=== PATIENT | female | born 1995 | race Caucasian/White ===

== ENCOUNTER 2019-02-26 02:28 | Emergency (ER) | payer SELFPAY ==
[~2019-02-26] VITALS: Ht 162.6 cm; Wt 122.5 kg
--- OUTSIDE RECORDS SUMMARY | 2019-02-26 02:33 | XMS REPORT ---
Author Author DEBRA VELASCO [facility] Address [address] [place] [address] Care Team Providers Care Communications Engineering Technician Name Role Phone DEBRA VELASCO Unavailable PROBLEMS Type Condition ICD9-CM Code [id number] Code Onset Dates Condition Status SNOMED Code Problem Gingivitis K05.10 Active 28148090 Problem Moderate episode of recurrent major depressive disorder F33.1 Active 802624701 Problem Abnormal smell R43.1 Active 1601009927935 Problem Anxiety F41.9 Active 39600751 ALLERGIES Substance Reaction Event Type Date Status Nystatin Unknown Drug Allergy Aug, Active Decongestant Unknown Drug Allergy Aug, Active Cough Formula D Unknown Drug Allergy Aug, Active Pain med sensitivity Unknown Non Drug Allergy Aug, Active Muscle relaxers Unknown Non Drug Allergy Aug, Active ENCOUNTERS Encounter Location Date Diagnosis [place] [address] [address] Sep, [place] [address] [address] [place] [id number] [place] [phone] Aug, Dental examination Z01.20 [place] [address] [address] Aug, Gingivitis K05.10 ; Moderate episode of recurrent major depressive disorder F33.1 ; Abnormal smell R43.1 and BMI 40.0-44.9, adult Z68.41 [place] [address] [address] 08 May, 2017 [place] [address] [address] 10 Apr, 2017 Anxiety F41.9 ; Establishing care with new doctor, encounter for Z76.89 ; Mild single current episode of major depressive disorder F32.0 and Screening cholesterol level Z13.220 [facility] [address] [facility] [id number] [place] [address] Mar, Anxiety F41.9 IMMUNIZATIONS No Known Immunizations SOCIAL HISTORY Never Assessed REASON FOR VISIT Establish Care Kiesha ARBOLEDA, Lost sense of smell, taste and tremor in left index fi nger and anxiety Kiesha ARBOLEDA PLAN OF CARE Activity Details Follow Up 6-8wk Reason:depression VITAL SIGNS Height 64 in 2018-09-10 Weight 241.7 lbs 2018-09-10 Temperature 98.6 degrees Fahrenheit 2018-09-10 Heart Rate 94 bpm 2018-09-10 Respiratory Rate 18 2018-09-10 BMI 41.48 kg/m2 2018-09-10 Blood pressure systolic 132 mmHg 2018-09-10 Blood pressure diastolic 88 mmHg 2018-09-10 MEDICATIONS Medication Instructions Dosage Frequency Start Date End Date Duration Status Prozac 20 mg 1 capsule daily for 2 wk then increase to 2 capsules daily Aug, 90 days Active Amoxicillin 500 mg Orally every 8 hrs 1 capsule 8h Aug, 7 days Active Chlorhexidine Gluconate 0.12 % Mouth/Throat 2 times a day 15 mL swish and spit 12h Aug, 10 days Active RESULTS No Results PROCEDURES No Known procedures INSTRUCTIONS MEDICATIONS ADMINISTERED No Known Medications MEDICAL (GENERAL) HISTORY Type Description Date Medical History generalized anxiety Medical History PMDD Medical History somatic anxiety Medical History HPV Medical History Gluten intolerance Surgical History cholecystectomy 2006 Hospitalization History [facility] for anxiety attack 06/2018
--- OUTSIDE RECORDS SUMMARY | 2019-02-26 02:33 | XMS REPORT ---
Author Author DENISE MAKI Organization [facility] Address [address] [place] [address] Care Team Providers Care Recreation Director Name Role Phone DENISE MAKI Unavailable PROBLEMS Type Condition ICD9-CM Code [id number] Code Onset Dates Condition Status SNOMED Code Problem Mild single current episode of major depressive disorder F32.0 Active 42517633 Problem Anxiety F41.9 Active 36846309 ALLERGIES Substance Reaction Event Type Date Status Nystatin Unknown Drug Allergy Mar, Active Decongestant Unknown Drug Allergy Mar, Active Cough Formula D Unknown Drug Allergy Mar, Active Muscle relaxers Unknown Non Drug Allergy Mar, Active Pain med sensitivity Unknown Non Drug Allergy Mar, Active ENCOUNTERS Encounter Location Date Diagnosis [facility] [id number] [place] [phone] May, [facility] [address] [place] [id number] [place] [phone] Apr, Anxiety F41.9 ; Establishing care with new doctor, encounter for Z76.89 ; Mild single current episode of major depressive disorder F32.0 and Screening cholesterol level Z13.220 [facility] [address] [place] [id number] [place] [phone] Mar, Anxiety F41.9 IMMUNIZATIONS No Known Immunizations SOCIAL HISTORY Never Assessed REASON FOR VISIT Sat started hainvg weird head pain on left side, vertigo couldnt stand up- went to ER but left due to long wait. Next day felt like air is thick, chest started to hurt, dizziness, right arm went numb. Happened once every day since. J[address]ras[address] rRN PLAN OF CARE Activity Details Follow Up prn Reason: VITAL SIGNS Height 64 in 2017-04-07 Weight 242.0 lbs 2017-04-07 Temperature 98.3 degrees Fahrenheit 2017-04-07 Heart Rate 76 bpm 2017-04-07 Respiratory Rate 20 2017-04-07 BMI 41.53 kg/m2 2017-04-07 Blood pressure systolic 110 mmHg 2017-04-07 Blood pressure diastolic 76 mmHg 2017-04-07 MEDICATIONS Unknown Medications RESULTS No Results PROCEDURES No Known procedures INSTRUCTIONS MEDICATIONS ADMINISTERED No Known Medications MEDICAL (GENERAL) HISTORY Type Description Date Medical History generalized anxiety Medical History PMDD Medical History somatic anxiety Medical History HPV Medical History Gluten intolerance Surgical History cholecystectomy 2006
--- OUTSIDE RECORDS SUMMARY | 2019-02-26 02:33 | XMS REPORT ---
Author Author SYLVIA Spann Organization [facility] Address [address] [place] [address] Care Team Providers Care Glass Cutter Name Role Phone SYLVIA Spann Unavailable PROBLEMS Type Condition ICD9-CM Code [id number] Code Onset Dates Condition Status SNOMED Code Problem Mild single current episode of major depressive disorder F32.0 Active 85830544 Problem Anxiety F41.9 Active [id number] ALLERGIES No Information ENCOUNTERS Encounter Location Date Diagnosis [facility] [id number] [place] [phone] 08 May, 2017 [facility] [address] [place] [id number] [place] [phone] 10 Apr, 2017 Anxiety F41.9 ; Establishing care with new doctor, encounter for Z76.89 ; Mild single current episode of major depressive disorder F32.0 and Screening cholesterol level Z13.220 [facility] [id number] [place] [phone] 15 Mar, 2017 Anxiety F41.9 IMMUNIZATIONS No Known Immunizations SOCIAL HISTORY Never Assessed REASON FOR VISIT Refill request PLAN OF CARE VITAL SIGNS MEDICATIONS Unknown Medications RESULTS No Results PROCEDURES No Known procedures INSTRUCTIONS MEDICATIONS ADMINISTERED No Known Medications MEDICAL (GENERAL) HISTORY Type Description Date Medical History generalized anxiety Medical History PMDD Medical History somatic anxiety Medical History HPV Medical History Gluten intolerance Surgical History cholecystectomy 2006
[2019-02-26 02:51] LABS: BILIRUBIN,URINE NEGATIVE (NEGATIVE); CLARITY,URINE CLEAR; COLOR,URINE YELLOW; GLUCOSE, URINE (UA) NEGATIVE (NEGATIVE); KETONES,URINE NEGATIVE (NEGATIVE); NITRITE,URINE NEGATIVE (NEGATIVE); PROTEIN,URINE NEGATIVE (NEGATIVE)
[2019-02-26 02:52] LABS: BACTERIA,URINE QNS /HPF; LEUKOCYTE ESTERASE ,URINE TRACE (NEGATIVE); RBC,URINE QNS /HPF; UROBILINOGEN,URINE 0.2 MG/DL (NORMAL); WBC,URINE QNS /HPF
--- NOTE | 2019-02-26 03:05 | ED GI ---
General Chief Complaint: Abdominal/GI Problems Stated Complaint: ABD PAIN;VOMITING Nursing Triage Note: pt states n/v with lower mid back pain started yesterday morning. pt unable to keep even water down Sepsis Screen: No Definite Risk Source of Information: Patient, RN Notes Reviewed Exam Limitations: No Limitations History of Present Illness Date Seen by Provider: Feb 26, 2019 Time Seen by Provider: 03:00 Initial Comments Patient presents c/ c/o worsening abdominal pain c/ N/V since yesterday. A little diarrhea. (+) LBP as well. No known fever. Never had before. States can't keep anything down. Timing/Duration: 1 Day Severity/Quality: Moderate Location: Periumbilical Radiation: Back Activities at Onset: None Modifying Factors: Improves With Other (none) Associated Symptoms: Denies Symptoms (x/ as noted. ), Back Pain, Nausea/Vomiting Allergies and Home Medications Allergies Coded Allergies: latex (Verified Allergy, Unknown, 02/26/19) nystatin (Verified Allergy, Unknown, 02/26/19) Uncoded Allergies: MUSCLE RELAXANTS (Allergy, Unknown, 02/26/19) PAIN MEDICATION (Allergy, Unknown, 02/26/19) Home Medications Cefuroxime Axetil 250 Mg Tablet, 250 MG PO BID Prescribed by: OTF WIN on 02/26/19444 Ondansetron 4 Mg Tab.rapdis, 4 MG PO Q6H PRN for NAUSEA/VOMITING Prescribed by: OTF WIN on 02/26/19 0445 Patient Home Medication List Home Medication List Reviewed: Yes Review of Systems Review of Systems Constitutional: see HPI Gastrointestinal: See HPI, Abdominal Pain, Diarrhea (a little), Nausea, Vomiti ng All Other Systems Reviewed Negative Unless Noted: Yes (Negative excepted noted.) Past Pvchsqv-Lbwlct-Itszlt Hx Patient Social History Alcohol Use: Denies Use Recreational Drug Use: No Smoking Status: Current Everyday Smoker Type Used: Cigars 2nd Hand Smoke Exposure: No Recent Foreign Travel: No Contact w/Someone Who Travel: No Recent Infectious Disease Expo: No Recent Hopitalizations: No Physical Abuse: No Sexual Abuse: No Mistreated: No Fear: No Seasonal Allergies Seasonal Allergies: No Past Medical History Surgeries: Yes Gallbladder Respiratory: No Cardiac: No Neurological: No Genitourinary: No Gastrointestinal: No Musculoskeletal: No Endocrine: No HEENT: No Cancer: No Psychosocial: No Integumentary: No Blood Disorders: No Physical Exam Vital Signs Vital Signs - First Documented 02/26/19 02:43 Temp 97.4 Pulse 95 Resp 16 B/P (MAP) 153/88 (109) Pulse Ox 98 O2 Delivery Room Air Capillary Refill : Less Than 3 Seconds Height/Weight/BMI Height: 5'4.00" Weight: 270lbs. oz. 122.228998rc; BMI Method:Stated General Appearance: WD/WN, moderate distress, obese Respiratory: no respiratory distress Cardiovascular: regular rate, rhythm Gastrointestinal: soft; No distended, No guarding, No rebound; tenderness (generalized mid abdomen) Rectal: deferred Neurologic/Psychiatric: no motor/sensory deficits, alert, oriented x 3, depressed affect Skin: warm/dry (hygiene is fair @ best) Progress/Results/Core Measures Results/Orders Lab Results Laboratory Tests Test 02/26/19 02:40 02/26/19 03:18 Range/Units Urine Color YELLOW Urine Clarity CLEAR Urine pH 6.0 5-9 Urine Specific [place] 1.025 H 1.016-1.022 Urine Protein NEGATIVE NEGATIVE Urine Glucose (UA) NEGATIVE NEGATIVE Urine Ketones NEGATIVE NEGATIVE Urine Nitrite NEGATIVE NEGATIVE Urine Bilirubin NEGATIVE NEGATIVE Urine Urobilinogen 0.2 NORMAL MG/DL Urine Leukocyte Esterase TRACE NEGATIVE Urine RBC (Auto) TRACE H NEGATIVE Urine RBC /HPF Urine WBC /HPF Urine Crystals /LPF Urine Bacteria /HPF Urine Casts /LPF Urine Mucus /LPF Urine Culture Indicated NO White Blood Count 8.1 4.3-11.0 10^3/uL Red Blood Count 4.35 4.35-5.85 10^6/uL Hemoglobin 12.8 11.5-16.0 G/DL Hematocrit 37 35-52 % Mean Corpuscular Volume 86 80-99 FL Mean Corpuscular Hemoglobin 29 25-34 PG Mean Corpuscular Hemoglobin Concent 34 32-36 G/DL Red Cell Distribution Width 12.9 10.0-14.5 % Platelet Count 315 130-400 10^3/uL Mean Platelet Volume 10.2 7.4-10.4 FL Neutrophils (%) (Auto) 71 42-75 % Lymphocytes (%) (Auto) 23 12-44 % Monocytes (%) (Auto) 4 0-12 % Eosinophils (%) (Auto) 2 0-10 % Basophils (%) (Auto) 0 0-10 % Neutrophils # (Auto) 5.7 1.8-7.8 X 10^3 Lymphocytes # (Auto) 1.9 1.0-4.0 X 10^3 Monocytes # (Auto) 0.3 0.0-1.0 X 10^3 Eosinophils # (Auto) 0.2 0.0-0.3 10^3/uL Basophils # (Auto) 0.0 0.0-0.1 10^3/uL Sodium Level 139 135-145 MMOL/L Potassium Level 4.1 3.6-5.0 MMOL/L Chloride Level 102 98-107 MMOL/L Carbon Dioxide Level 15 L 21-32 MMOL/L Anion Gap 22 H 5-14 MMOL/L Blood Urea Nitrogen 13 7-18 MG/DL Creatinine 0.60 0.60-1.30 MG/DL Estimat Glomerular Filtration Rate > 60 BUN/Creatinine Ratio 22 Glucose Level 115 H 70-105 MG/DL Calcium Level 9.1 8.5-10.1 MG/DL Corrected Calcium 9.1 8.5-10.1 MG/DL Total Bilirubin 0.4 0.1-1.0 MG/DL Aspartate Amino Transf (AST/SGOT) 11 5-34 U/L Alanine Aminotransferase (ALT/SGPT) 14 0-55 U/L Alkaline Phosphatase 51 40-136 U/L Total Protein 7.3 6.4-8.2 GM/DL Albumin 4.0 3.2-4.5 GM/DL Lipase 23 8-78 U/L Serum Test, Qualitative NEGATIVE NEGATIVE My Orders Orders - OTF WIN DO Ua Culture If Indicated (02/26/19 02:36) Ed Iv/Invasive Line Start (02/26/19 03:05) Cbc With Automated Diff (02/26/19 03:05) Comprehensive Metabolic Panel (02/26/19 03:05) Hcg,Qualitative Serum (02/26/19 03:05) Lipase (02/26/19 03:05) Lactated Ringers (Lr 1000 Ml Iv Solution (02/26/19 03:15) Ketorolac Injection (Toradol Injection) (02/26/19 03:15) Ct Abdomen/Pelvis W (02/26/19 03:52) Iohexol Injection (Omnipaque 350 Mg/Ml 1 (02/26/19 04:00) Received Contrast (Hold Metformin- Contr (02/26/19 04:00) Ns (Ivpb) (Sodium Chloride 0.9% Ivpb Bag (02/26/19 04:00) Ceftriaxone For Iv Use (Rocephin For I (02/26/19 04:45) Ondansetron Injection (Zofran Injectio (02/26/19 04:45) Medications Given in ED Vital Signs/I&O 02/26/19 02/26/19 02:43 04:59 Temp 97.4 Pulse 95 77 Resp 16 18 B/P (MAP) 153/88 (109) 160/105 (123) Pulse Ox 98 98 O2 Delivery Room Air Room Air Blood Pressure Mean: 109 Progress Progress Note : Progress Note Symptoms improved c/ fluids and meds Diagnostic Imaging Diagonstic Imaging: CT Plain Films/CT/US/NM/MRI: abdomen (See reported; suspected bladder infection) Departure Impression Primary Impression: Abdominal pain Additional Impressions: Nausea and vomiting Urinary tract infection Disposition: HOME, SELF-CARE Condition: Improved Departure-Patient Inst. Decision time for Depature: 04:42 Referrals: [facility] Patient Instructions: Nausea and Vomiting of (DC), Urinary Tract Infection, Adult (DC) Add. Discharge Instructions: All discharge instructions reviewed with patient and/or family. Voiced understanding. RECOMMEND 1000 mg OF TYLENOL EVERY 6 HOURS NEEDED FOR PAIN. DO NOT EXCEED 4000 mg OF TYLENOL IN A 24 HOUR PERIOD. Scripts Cefuroxime Axetil (Cefuroxime) 250 Mg Tablet 250 MG PO BID for UTI for 10 Days, #20 TAB 0 Refills Prov: OTF WIN DO 02/26/19 Ondansetron (Ondansetron Odt) 4 Mg Tab.rapdis 4 MG PO Q6H PRN for NAUSEA/VOMITING, #10 TAB 0 Refills Prov: OTF WIN DO 02/26/19 OTF WIN DO Feb 26, 2019 03:05
[2019-02-26] MEDS ORDERED: LACTATED RINGERS 1,000 ML IV SCH (03:15)
[2019-02-26] MEDS ORDERED: KETOROLAC 30 MG/ML VIAL IVP ONE (03:15)
[2019-02-26 03:27] LABS: HEMATOCRIT 37 % (35-52); HEMOGLOBIN 12.8 G/DL (11.5-16.0); MEAN CORPUSCULAR HEMOGLOBIN 29 PG (25-34); MEAN CORPUSCULAR HGB CONC 34 G/DL (32-36); MEAN CORPUSCULAR VOLUME 86 FL (80-99); PLATELET COUNT 315 10^3/uL (130-400); RED CELL DISTRIBUTION WIDTH 12.9 % (10.0-14.5); WHITE BLOOD COUNT 8.1 10^3/uL (4.3-11.0)
[2019-02-26 03:28] LABS: BASOPHILS % (AUTO) 0 % (0-10); EOSINOPHILS # (AUTO) 0.2 10^3/uL (0.0-0.3); EOSINOPHILS % (AUTO) 2 % (0-10); LYMPHOCYTES # (AUTO) 1.9 X 10^3 (1.0-4.0); LYMPHOCYTES % (AUTO) 23 % (12-44); MEAN PLATELET VOLUME 10.2 FL (7.4-10.4); MONOCYTES # (AUTO) 0.3 X 10^3 (0.0-1.0); MONOCYTES % (AUTO) 4 % (0-12); NEUTROPHILS # (AUTO) 5.7 X 10^3 (1.8-7.8); NEUTROPHILS % (AUTO) 71 % (42-75)
[2019-02-26 03:43] LABS: CARBON DIOXIDE 15 MMOL/L (21-32); CHLORIDE 102 MMOL/L (98-107); POTASSIUM 4.1 MMOL/L (3.6-5.0); SODIUM 139 MMOL/L (135-145)
[2019-02-26 03:44] LABS: ALANINE AMINOTRANSFERASE 14 U/L (0-55); ALKALINE PHOSPHATASE 51 U/L (40-136); BILIRUBIN,TOTAL 0.4 MG/DL (0.1-1.0); BUN/CREATININE RATIO 22; CALCIUM 9.1 MG/DL (8.5-10.1); GFR ESTIMATED > 60; GLUCOSE 115 MG/DL (70-105); LIPASE 23 U/L (8-78); TOTAL PROTEIN 7.3 GM/DL (6.4-8.2)
[2019-02-26] MEDS ORDERED: IOHEXOL 350 MG/ML 100 ML (OMNIPAQUE 350) VIAL IV ONE (04:00)
[2019-02-26] MEDS ORDERED: NS 100 ML (IVPB) BAG IV ONE (04:00)
[2019-02-26] MEDS ORDERED: HOLD METFORMIN - RECEIVED CONTRAST 20 ML VIAL IV SCH (04:00)
[2019-02-26] MEDS ORDERED: cefTRIAXone FOR IV USE 1,000 MG in WATER (STERILE) FOR INJECTION 10 ML IV ONE (04:45)
[2019-02-26] MEDS ORDERED: ONDA4TAB11 PO (04:45)
[2019-02-26] MEDS ORDERED: CEFU250T80 PO (04:45)
[2019-02-26] MEDS ORDERED: ONDANSETRON 4 MG/2 ML (SDV) Z0FRAN IVP ONE (04:45)
[2019-02-26 04:59] VITALS: BP 160/105
--- NOTE | 2019-02-26 06:59 | Diagnostic Imaging Report ---
PROCEDURE: CT abdomen and pelvis with contrast. TECHNIQUE: Multiple contiguous axial images were obtained through the abdomen and pelvis after administration of intravenous contrast. Auto Exposure Controls were utilized during the CT exam to meet ALARA standards for radiation dose reduction. INDICATION: Lower abdominal pain. Nausea and vomiting. COMPARISON: None. FINDINGS: Lung bases are clear. Cholecystectomy. The liver, pancreas, spleen, adrenals, kidneys, collecting systems and appendix are negative. IUD. Gallbladder wall thickening versus underdistention. No free intraperitoneal air or fluid. No lymphadenopathy. No evidence of bowel obstruction. No acute osseous findings. IMPRESSION: 1. Mild bladder wall thickening versus underdistention. Please correlate with urinalysis. 2. No other acute appearing CT findings in the abdomen or pelvis. Dictated by: Dictated on workstation # [id number]
== END 2019-02-26 04:59 | disposition home or self-care (01) ==
LOC: ER FS 02:30
DX: N39.0 Urinary tract infection, site not specified (principal); F17.290 Nicotine dependence, other tobacco product, uncomplicated; Z98.890 Other specified postprocedural states; Z91.040 Latex allergy status; Z88.8 Allergy status to other drugs, medicaments and biological substances
CPT/HCPCS: 36415; 74177; 80053; 81000; 83690; 84703; 85025; 96361; 96374; 96375

== ENCOUNTER 2019-06-24 18:27 | Emergency (ER) | payer SELFPAY ==
[~2019-06-24] VITALS: Ht 162.5 cm; Wt 98.6 kg
[~2019-06-24 18:27] MED LIST: CEFU250T80 PO; ONDA4TAB11 PO
[2019-06-24 19:03] LABS: CLARITY,URINE CLOUDY; COLOR,URINE YELLOW
[2019-06-24 19:04] LABS: BILIRUBIN,URINE 1+ (NEGATIVE); GLUCOSE, URINE (UA) NEGATIVE (NEGATIVE); KETONES,URINE 2+ (NEGATIVE); LEUKOCYTE ESTERASE ,URINE 1+ (NEGATIVE); NITRITE,URINE NEGATIVE (NEGATIVE); PROTEIN,URINE 1+ (NEGATIVE)
[2019-06-24 19:05] LABS: BACTERIA,URINE LARGE /HPF; SQUAMOUS EPITHELIAL CELL,UR 25-50 /HPF
[2019-06-24] MEDS ORDERED: LOPE-145 PO (19:18)
[2019-06-24] MEDS ORDERED: FAMO-119 PO (19:18)
[2019-06-24] MEDS ORDERED: ONDA4TAB11 PO (19:18)
[2019-06-24 19:20] VITALS: BP 152/85
--- NOTE | 2019-07-15 15:32 | ED Abdominal Pain ---
General Chief Complaint: Abdominal/GI Problems Stated Complaint: NAUSEA; VOMITING; DIARRHEA; ABD PAIN Nursing Triage Note: Patient c/o nausea, vomiting, and abdominal pain that lasted for about 3 weeks. States that she no longer is having vomiting or abdominal pain and is able to eat small meals but still becomes nauseated. She reports that she has an IUD and had a positive test 3 weeks ago but a negative test 3 days ago. She states that she has lost 30lbs in the last 3 weeks and is worried about an ectopic . Sepsis Screen: No Definite Risk Source of Information: Patient Exam Limitations: No Limitations History of Present Illness Date Seen by Provider: Jun 24, 2019 Time Seen by Provider: 18:30 Initial Comments Patient is 24 rolled female presents with intermittent daily him pain with nausea vomiting and diarrhea 3 weeks. Diarrhea and, pain have not resolved. Patient reports 20 pound weight loss during this time. No hematemesis coffee- ground emesis, diarrhea, constipation or black tarry stools. No fever chills or sweats. Denies dizziness lightheadedness upon standing. Patient has not been evaluated for her symptoms prior to today's ED visit. Timing/Duration: Changing Over Time, Intermittent Severity/Quality: Mild Location: Epigastric Radiation: No Radiation Activities at Onset: None Associated Symptoms: Denies Symptoms Allergies and Home Medications Allergies Coded Allergies: latex (Verified Allergy, Unknown, 02/26/19) nystatin (Verified Allergy, Unknown, 02/26/19) Uncoded Allergies: MUSCLE RELAXANTS (Allergy, Unknown, 02/26/19) PAIN MEDICATION (Allergy, Unknown, 02/26/19) Home Medications Cefuroxime Axetil 250 Mg Tablet, 250 MG PO BID Prescribed by: OTF WIN on 02/26/19444 Famotidine 20 Mg Tablet, 20 MG PO q12 Prescribed by: SOSA MARTINS on 06/24/191917 Loperamide HCl 2 Mg Capsule, 2 MG PO Q4H Prescribed by: SOSA MARTINS on 06/24/191917 Ondansetron 4 Mg Tab.rapdis, 4 MG PO Q6H PRN for NAUSEA/VOMITING Prescribed by: OTF WIN on 02/26/19444 Ondansetron 4 Mg Tab.rapdis, 4 MG PO Q6H Prescribed by: SOSA MARTINS on 06/24/191917 Patient Home Medication List Home Medication List Reviewed: Yes Review of Systems Review of Systems Constitutional: see HPI EENTM: See HPI Respiratory: See HPI Cardiovascular: See HPI Gastrointestinal: See HPI Genitourinary: See HPI Musculoskeletal: see HPI Skin: see HPI Psychiatric/Neurological: See HPI Endocrine: See HPI Hematologic/Lymphatic: See HPI All Other Systems Reviewed Negative Unless Noted: Yes Past Smjzhhr-Skfigl-Wwbzcw Hx Past Med/Social Hx: Reviewed Nursing Past Med/Soc Hx Patient Social History Alcohol Use: Denies Use Recreational Drug Use: No Type Used: Cigars 2nd Hand Smoke Exposure: No Recent Foreign Travel: No Contact w/Someone Who Travel: No Recent Infectious Disease Expo: No Recent Hopitalizations: No Physical Abuse: No Sexual Abuse: No Mistreated: No Fear: No Seasonal Allergies Seasonal Allergies: No Past Medical History Surgeries: Yes Gallbladder Respiratory: No Cardiac: No Neurological: No Genitourinary: No Gastrointestinal: No Musculoskeletal: No Endocrine: No HEENT: No Cancer: No Psychosocial: No Integumentary: No Blood Disorders: No Physical Exam Vital Signs Capillary Refill : Less Than 3 Seconds Height/Weight/BMI Height: 5'4.00" Weight: 270lbs. oz. 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, no motor/sensory deficits, normal mood/affect Skin: normal color Focused Exam Sepsis Stage: Ruled Out Progress/Results/Core Measures Results/Orders Lab Results Laboratory Tests Test 06/24/19 18:29 06/24/19 18:40 06/24/19 18:47 Range/Units Lab Scanned Report Referred Lab Report [id number] Urine Color YELLOW Urine Clarity CLOUDY Urine pH 8.0 5-9 Urine Specific [place] 1.020 1.016-1.022 Urine Protein 1+ H NEGATIVE Urine Glucose (UA) NEGATIVE NEGATIVE Urine Ketones 2+ H NEGATIVE Urine Nitrite NEGATIVE NEGATIVE Urine Bilirubin 1+ H NEGATIVE Urine Urobilinogen 1.0 NORMAL MG/DL Urine Leukocyte Esterase 1+ H NEGATIVE Urine RBC (Auto) NEGATIVE NEGATIVE Urine RBC NONE /HPF Urine WBC 10-25 H /HPF Urine Squamous Epithelial Cells 25-50 H /HPF Urine Crystals NONE /LPF Urine Bacteria LARGE H /HPF Urine Casts NONE /LPF Urine Mucus SMALL H /LPF Urine Culture Indicated YES Urine Test NEGATIVE NEGATIVE Glucometer 91 70-110 MG/DL Micro Results Microbiology 06/24/19 Urine Culture - Final, Complete 3 or more isolates My Orders Orders - SOSA MARTINS DO Hcg,Qualitative Urine (06/24/19 18:48) Ua Culture If Indicated (06/24/19 18:48) Accucheck Fasting (06/24/19 18:48) Urine Culture (06/24/19 18:40) Blood Pressure Mean: 107 FSBG Bedside Testing Finger Stick Blood Glucose: 91 Departure Communication (Admissions) Benign abdominal exam. Blood sugar, UA reviewed. We'll treat supportively with PCP follow-up. Impression Primary Impression: Nausea Additional Impression: Diarrhea Disposition: HOME, SELF-CARE Condition: Improved Departure-Patient Inst. Scripts Loperamide HCl (Imodium A-D) 2 Mg Capsule 2 MG PO Q4H, #10 CAP Prov: SOSA MARTINS DO 06/24/19 Ondansetron (Ondansetron Odt) 4 Mg Tab.rapdis 4 MG PO Q6H, #20 TAB Prov: SOSA MARTINS DO 06/24/19 Famotidine (Pepcid) 20 Mg Tablet 20 MG PO q12, #20 TAB Prov: SOSA MARTINS DO 06/24/19 SOSA MARTINS DO Jul 15, 2019 15:32
--- OUTSIDE RECORDS SUMMARY | 2019-07-17 06:15 | XMS REPORT | Continuity of Care Document ---
Author Organization Unknown Address Unknown Phone Unavailable Allergies Active Description Code Type Severity Reaction Onset Reported/Identified Relationship to Patient Clinical Status Yes latex [id number] Drug Allergy Unknown N/A 02/26/2019 Yes MUSCLE RELAXANTS MUSCLE RELAXANTS Unknown N/A 02/26/2019 Yes nystatin [id number] Drug Allergy Unknown N/A 02/26/2019 Yes PAIN MEDICATION PAIN MEDICATION Unknown N/A 02/26/2019 Medications There is no data. Problems Date Dx Coded Attending Type Code Diagnosis Diagnosed By 02/26/2019 OTF WIN DO, Ot F17.290 NICOTINE DEPENDENCE, OTHER TOBACCO PRODU 02/26/2019 OTF WIN DO, Ot N39.0 URINARY TRACT INFECTION, SITE NOT SPECIF 02/26/2019 TOF WIN DO, Ot R10.33 PERIUMBILICAL PAIN 02/26/2019 OTF WIN DO Ot Z88.8 ALLERGY STATUS TO OTH DRUG/MEDS/BIOL SUB 02/26/2019 OTF WIN DO Ot Z91.040 LATEX ALLERGY STATUS 02/26/2019 OTF WIN DO Ot Z98.890 OTHER SPECIFIED POSTPROCEDURAL STATES 03/03/2019 OTF WIN DO, Ot F17.290 NICOTINE DEPENDENCE, OTHER TOBACCO PRODU 03/03/2019 OTF WIN DO, Ot N39.0 URINARY TRACT INFECTION, SITE NOT SPECIF 03/03/2019 OTF WIN DO, Ot R10.33 PERIUMBILICAL PAIN 03/03/2019 OTF WIN DO Ot Z88.8 ALLERGY STATUS TO OTH DRUG/MEDS/BIOL SUB 03/03/2019 OTF WIN DO Ot Z91.040 LATEX ALLERGY STATUS 03/03/2019 OTF WIN DO Ot Z98.890 OTHER SPECIFIED POSTPROCEDURAL STATES Procedures There is no data. Results Test Result Range Complete urinalysis with reflex to culture - 02/26/19 02:40 Urine color determination YELLOW NRG Urine clarity determination CLEAR NRG Urine pH measurement by test strip 6.0 5-9 Specific gravity of urine by test strip 1.025 1.016-1.022 Urine protein assay by test strip, semi-quantitative NEGATIVE NEGATIVE Urine glucose detection by automated test strip NEGATIVE NEGATIVE Erythrocytes detection in urine sediment by light microscopy TRACE NEGATIVE Urine ketones detection by automated test strip NEGATIVE NEGATIVE Urine nitrite detection by test strip NEGATIVE NEGATIVE Urine total bilirubin detection by test strip NEGATIVE NEGATIVE Urine urobilinogen measurement by automated test strip (mass/volume) 0.2 mg/dL NORMAL Urine leukocyte esterase detection by dipstick TRACE NEGATIVE Automated urine sediment erythrocyte count by microscopy (number/high power field) QNS NRG Automated urine sediment leukocyte count by microscopy (number/high power field) QNS NRG Bacteria detection in urine sediment by light microscopy QNS NRG Crystals detection in urine sediment by light microscopy QNS NRG Casts detection in urine sediment by light microscopy QNS NRG Mucus detection in urine sediment by light microscopy QNS NRG Complete urinalysis with reflex to culture NO NRG Complete blood count (CBC) with automated white blood cell (WBC) differential - 02/26/19 03:18 Blood leukocytes automated count (number/volume) 8.1 10*3/uL 4.3-11.0 Blood erythrocytes automated count (number/volume) 4.35 10*6/uL 4.35-5.85 Venous blood hemoglobin measurement (mass/volume) 12.8 g/dL 11.5-16.0 Blood hematocrit (volume fraction) 37 % 35-52 Automated erythrocyte mean corpuscular volume 86 [foz_us] 80-99 Automated erythrocyte mean corpuscular hemoglobin (mass per erythrocyte) 29 pg 25-34 Automated erythrocyte mean corpuscular hemoglobin concentration measurement (mass/volume) 34 g/dL 32-36 Automated erythrocyte distribution width ratio 12.9 % 10.0- 14.5 Automated blood platelet count (count/volume) 315 10*3/uL 130-400 Automated blood platelet mean volume measurement 10.2 [foz_us] 7.4-10.4 Automated blood neutrophils/100 leukocytes 71 % 42-75 Automated blood lymphocytes/100 leukocytes 23 % 12-44 Blood monocytes/100 leukocytes 4 % 0-12 Automated blood eosinophils/100 leukocytes 2 % 0-10 Automated blood basophils/100 leukocytes 0 % 0-10 Blood neutrophils automated count (number/volume) 5.7 10*3 1.8-7.8 Blood lymphocytes automated count (number/volume) 1.9 10*3 1.0-4.0 Blood monocytes automated count (number/volume) 0.3 10*3 0.0- 1.0 Automated eosinophil count 0.2 10*3/uL 0.0-0.3 Automated blood basophil count (count/volume) 0.0 10*3/uL 0.0-0.1 Comprehensive metabolic panel - 02/26/19 03:18 Serum or plasma sodium measurement (moles/volume) 139 mmol/L 135-145 Serum or plasma potassium measurement (moles/volume) 4.1 mmol/L 3.6-5.0 Serum or plasma chloride measurement (moles/volume) 102 mmol/L 98-107 Carbon dioxide 15 mmol/L 21-32 Serum or plasma anion gap determination (moles/volume) 22 mmol/L 5-14 Serum or plasma urea nitrogen measurement (mass/volume) 13 mg/dL 7-18 Serum or plasma creatinine measurement (mass/volume) 0.60 mg/dL 0.60-1.30 Serum or plasma urea nitrogen/creatinine mass ratio 22 NRG Serum or plasma creatinine measurement with calculation of estimated glomerular filtration rate > NRG Serum or plasma glucose measurement (mass/volume) 115 mg/dL 70-105 Serum or plasma calcium measurement (mass/volume) 9.1 mg/dL 8.5-10.1 Serum or plasma total bilirubin measurement (mass/volume) 0.4 mg/dL 0.1-1.0 Serum or plasma alkaline phosphatase measurement (enzymatic activity/volume) 51 U/L 40-136 Serum or plasma aspartate aminotransferase measurement (enzymatic activity/volume) 11 U/L 5-34 Serum or plasma alanine aminotransferase measurement (enzymatic activity/volume) 14 U/L 0-55 Serum or plasma protein measurement (mass/volume) 7.3 g/dL 6.4-8.2 Serum or plasma albumin measurement (mass/volume) 4.0 g/dL 3.2-4.5 CALCIUM CORRECTED 9.1 mg/dL 8.5-10.1 Lipase - 02/26/19 03:18 Lipase 23 U/L 8-78 Serum or plasma choriogonadotropin ( test) detection - 02/26/19 03:18 Serum or plasma choriogonadotropin ( test) detection NEGATIVE NEGATIVE Urine beta human chorionic gonadotropin (hCG) measurement - 06/24/19 18:40 Urine beta human chorionic gonadotropin (hCG) measurement NEGATIVE NEGATIVE Complete urinalysis with reflex to culture - 06/24/19 18:40 Urine color determination YELLOW NRG Urine clarity determination CLOUDY NRG Urine pH measurement by test strip 8.0 5-9 Specific gravity of urine by test strip 1.020 1.016-1.022 Urine protein assay by test strip, semi-quantitative 1+ NEGATIVE Urine glucose detection by automated test strip NEGATIVE NEGATIVE Erythrocytes detection in urine sediment by light microscopy NEGATIVE NEGATIVE Urine ketones detection by automated test strip 2+ NEGATIVE Urine nitrite detection by test strip NEGATIVE NEGATIVE Urine total bilirubin detection by test strip 1+ NEGATIVE Urine urobilinogen measurement by automated test strip (mass/volume) 1.0 mg/dL NORMAL Urine leukocyte esterase detection by dipstick 1+ NEGATIVE Automated urine sediment erythrocyte count by microscopy (number/high power field) NONE NRG Automated urine sediment leukocyte count by microscopy (number/high power field) [HPF] NRG Bacteria detection in urine sediment by light microscopy LARGE NRG Squamous epithelial cells detection in urine sediment by light microscopy 25-50 NRG Crystals detection in urine sediment by light microscopy NONE NRG Casts detection in urine sediment by light microscopy NONE NRG Mucus detection in urine sediment by light microscopy SMALL NRG Complete urinalysis with reflex to culture YES NRG Bacterial urine culture - 06/24/19 18:40 Bacterial urine culture 3 OR MORE NRG COLONY COUNT 80,000 CFU/ML NRG FTX;REPORTABLE GRAM POSITIVE ISOLATES; SUGGESTING NRG FREE TEXT ENTRY 2 PROBABLE COLLECTION CONTAMINATION WITH NRG FREE TEXT ENTRY 3 SKIN AGUEDA. NO SUSCEPTIBILITY PERFORMED. NRG Capillary blood glucose measurement by glucometer (mass/volume) - 06/24/19 18:47 Capillary blood glucose measurement by glucometer (mass/volume) 91 mg/dL 70-110 Encounters ACCT No. Visit Date/Time Discharge Status Pt. Type Provider Facility Loc./Unit Complaint [id number] 06/24/2019 18:29:00 06/24/2019 19:20:00 DIS Emergency SOSA MARTINS DO [facility] ER FS NAUSEA; VOMITING; DIARRHEA; ABD PAIN [id number] 02/26/2019 02:30:00 02/26/2019 04:59:00 DIS Emergency OTF WIN DO [facility] ER FS ABD PAIN;VOMITING
== END 2019-06-24 19:20 | disposition home or self-care (01) ==
LOC: EDUNIT# 18:27 → ER FS 18:29
DX: R11.2 Nausea with vomiting, unspecified (principal); R19.7 Diarrhea, unspecified; Z91.040 Latex allergy status; Z88.8 Allergy status to other drugs, medicaments and biological substances
CPT/HCPCS: 81000; 82962; 84703; 87088

== ENCOUNTER 2022-04-29 12:40 | Emergency (ER) | payer MEDICAID ==
[~2022-04-29] VITALS: Ht 162.6 cm; Wt 107.5 kg
[~2022-04-29 12:40] MED LIST changes: +FAMO-119 PO; +LOPE-175 PO
--- NOTE | 2022-04-29 13:07 | ED General ---
General Chief Complaint: Abdominal/GI Problems Stated Complaint: SORE THROAT/VOMITING 8 WKS PREG History of Present Illness Date Seen by Provider: Apr 29, 2022 Time Seen by Provider: 13:02 Initial Comments 27-year-old female who is 8 weeks with LMP of March 06, 2022, is here with complaints of sore throat, nausea and vomiting for the past few days. Patient is daughter has been COVID-positive for the past 4 days, and patient does not feel well today. Patient has been having vomiting since the beginning of and since not feeling well she has been even more nauseous. Patient has not had anything to eat for the past day and to half. Denies fever, diarrhea, constipation, abdominal pain, shortness of breath, cough, chest pain. Patient feels dehydrated. And tired. Allergies and Home Medications Allergies Coded Allergies: latex (Verified Allergy, Unknown, 02/26/19) nystatin (Verified Allergy, Unknown, 02/26/19) Uncoded Allergies: MUSCLE RELAXANTS (Allergy, Unknown, 02/26/19) PAIN MEDICATION (Allergy, Unknown, 02/26/19) Patient Home Medication List Home Medication List Reviewed: Yes Cefuroxime Axetil (Cefuroxime) 250 Mg Tablet, 250 MG PO BID Prescribed by: OTF WIN on 02/26/19444 Famotidine (Pepcid) 20 Mg Tablet, 20 MG PO q12 Prescribed by: SOSA MARTINS on 06/24/191917 Loperamide HCl (Imodium A-D) 2 Mg Capsule, 2 MG PO Q4H Prescribed by: SOSA MARTINS on 06/24/191917 Ondansetron (Ondansetron Odt) 4 Mg Tab.rapdis, 4 MG PO Q6H PRN for NAUSEA/VOMITING Prescribed by: OTF WIN on 02/26/19444 Ondansetron (Ondansetron Odt) 4 Mg Tab.rapdis, 4 MG PO Q6H Prescribed by: SOSA MARTINS on 06/24/191917 Review of Systems Review of Systems Constitutional: malaise EENTM: hoarseness, throat pain Respiratory: no symptoms reported Cardiovascular: no symptoms reported Gastrointestinal: nausea, vomiting Genitourinary: no symptoms reported : Yes Musculoskeletal: no symptoms reported Skin: no symptoms reported Psychiatric/Neurological: No Symptoms Reported Hematologic/Lymphatic: No Symptoms Reported Immunological/Allergic: no symptoms reported Past Uwbgzif-Njzlzl-Hoevhj Hx Patient Social History Tobacco Use?: No Substance use?: No Alcohol Use?: No Pt feels they are or have been: No Seasonal Allergies Seasonal Allergies: No Past Medical History Surgery/Hospitalization HX: Asthma Surgeries: Yes Gallbladder Respiratory: No Cardiac: No Neurological: No Genitourinary: No Gastrointestinal: No Musculoskeletal: No Endocrine: No HEENT: No Cancer: No Psychosocial: No Integumentary: No Blood Disorders: No Physical Exam Vital Signs Vital Signs - First Documented 04/29/22 12:50 Temp 36.4 Pulse 98 Resp 16 B/P (MAP) 149/74 (99) Pulse Ox 97 O2 Delivery Room Air Capillary Refill : Height, Weight, BMI Height: 5'4.00" Weight: 270lbs. oz. 122.604972hl; 37.00 BMI Method:Stated General Appearance: No Apparent Distress, Obese HEENT: PERRL/EOMI, Normal ENT Inspection, Pharynx Normal Neck: Full Range of Motion, Normal Inspection, Non Tender, Supple Respiratory: Chest Non Tender, Lungs Clear, Normal Breath Sounds Cardiovascular: Regular Rate, Rhythm, No Edema Gastrointestinal: Normal Bowel Sounds, Non Tender, Soft Back: Normal Inspection, No CVA Tenderness, No Vertebral Tenderness Extremity: Normal Inspection, Normal Range of Motion, No Calf Tenderness Neurologic/Psychiatric: Alert, Oriented x3, No Motor/Sensory Deficits, Normal Mood/Affect Skin: Normal Color Lymphatic: No Adenopathy Progress/Results/Core Measures Suspected Sepsis SIRS Temperature: Pulse: Respiratory Rate: Laboratory Tests 04/29/22 14:03: White Blood Count 3.9L Blood Pressure / Mean: Laboratory Tests 04/29/22 14:03: Creatinine 0.62, Platelet Count 235, Total Bilirubin 0.2 Results/Orders Lab Results Laboratory Tests Test 04/29/22 13:00 04/29/22 14:03 04/29/22 14:10 Range/Units Influenza Type A (RT-PCR) Not Detected Not Detecte Influenza Type B (RT-PCR) Not Detected Not Detecte SARS-CoV-2 RNA (RT-PCR) Detected H Not Detecte Group A Streptococcus Screen NEGATIVE NEGATIVE White Blood Count 3.9 L 4.3-11.0 10^3/uL Red Blood Count 3.95 3.80-5.11 10^6/uL Hemoglobin 11.8 11.5-16.0 g/dL Hematocrit 34 L 35-52 % Mean Corpuscular Volume 87 80-99 fL Mean Corpuscular Hemoglobin 30 25-34 pg Mean Corpuscular Hemoglobin Concent 35 32-36 g/dL Red Cell Distribution Width 12.4 10.0-14.5 % Platelet Count 235 130-400 10^3/uL Mean Platelet Volume 10.6 9.0-12.2 fL Immature Granulocyte % (Auto) 0 % Neutrophils (%) (Auto) 66 42-75 % Lymphocytes (%) (Auto) 19 12-44 % Monocytes (%) (Auto) 13 H 0-12 % Eosinophils (%) (Auto) 0 0-10 % Basophils (%) (Auto) 1 0-10 % Neutrophils # (Auto) 2.6 1.8-7.8 10^3/uL Lymphocytes # (Auto) 0.8 L 1.0-4.0 10^3/uL Monocytes # (Auto) 0.5 0.0-1.0 10^3/uL Eosinophils # (Auto) 0.0 0.0-0.3 10^3/uL Basophils # (Auto) 0.0 0.0-0.1 10^3/uL Immature Granulocyte # (Auto) 0.0 0.0-0.1 10^3/uL Sodium Level 137 135-145 MMOL/L Potassium Level 3.9 3.6-5.0 MMOL/L Chloride Level 103 98-107 MMOL/L Carbon Dioxide Level 22 21-32 MMOL/L Anion Gap 12 5-14 MMOL/L Blood Urea Nitrogen 8 7-18 MG/DL Creatinine 0.62 0.60-1.30 MG/DL Estimat Glomerular Filtration Rate 124 BUN/Creatinine Ratio 13 Glucose Level 91 70-105 MG/DL Calcium Level 8.1 L 8.5-10.1 MG/DL Corrected Calcium 8.3 L 8.5-10.1 MG/DL Magnesium Level 1.7 1.6-2.4 MG/DL Total Bilirubin 0.2 0.1-1.0 MG/DL Aspartate Amino Transf (AST/SGOT) 16 5-34 U/L Alanine Aminotransferase (ALT/SGPT) 16 0-55 U/L Alkaline Phosphatase 47 40-136 U/L Total Protein 6.5 6.4-8.2 GM/DL Albumin 3.7 3.2-4.5 GM/DL Urine Color DARK YELLOW Urine Clarity CLOUDY Urine pH 6.0 5-9 Urine Specific [place] >=1.030 1.016-1.022 Urine Protein 1+ H NEGATIVE Urine Glucose (UA) NEGATIVE NEGATIVE Urine Ketones 2+ H NEGATIVE Urine Nitrite NEGATIVE NEGATIVE Urine Bilirubin 1+ H NEGATIVE Urine Urobilinogen 1.0 < = 1.0 MG/DL Urine Leukocyte Esterase NEGATIVE NEGATIVE Urine RBC (Auto) NEGATIVE NEGATIVE Urine RBC 5-10 H /HPF Urine WBC 10-25 H /HPF Urine Squamous Epithelial Cells >50 H /HPF Urine Crystals NONE /LPF Urine Bacteria LARGE H /HPF Urine Casts NONE /LPF Urine Mucus LARGE H /LPF Urine Culture Indicated NO Urine Opiates Screen NEGATIVE NEGATIVE Urine Oxycodone Screen NEGATIVE NEGATIVE Urine Methadone Screen NEGATIVE NEGATIVE Urine Propoxyphene Screen NEGATIVE NEGATIVE Urine Barbiturates Screen NEGATIVE NEGATIVE Ur Tricyclic Antidepressants Screen NEGATIVE NEGATIVE Urine Phencyclidine Screen NEGATIVE NEGATIVE Urine Amphetamines Screen NEGATIVE NEGATIVE Urine Methamphetamines Screen NEGATIVE NEGATIVE Urine Benzodiazepines Screen NEGATIVE NEGATIVE Urine Cocaine Screen NEGATIVE NEGATIVE Urine Cannabinoids Screen POSITIVE H NEGATIVE My Orders Orders - DONNA PAULSON MD Covid 19 Inhouse Test (04/29/22 13:07) Isolation Central Supply Req (04/29/22 13:07) Influenza A And B By Pcr (04/29/22 13:07) Rapid Strep A Screen (04/29/22 13:08) Ed Iv/Invasive Line Start (04/29/22 13:08) Ns Iv 1000 Ml (Sodium Chloride 0.9%) (04/29/22 13:15) Cbc With Automated Diff (04/29/22 13:10) Comprehensive Metabolic Panel (04/29/22 13:10) Drug Screen Stat (Urine) (04/29/22 13:10) Magnesium (04/29/22 13:10) Ua Culture If Indicated (04/29/22 13:10) Ns Iv 1000 Ml (Sodium Chloride 0.9%) (04/29/22 13:12) Ondansetron Injection (Zofran Injectio (04/29/22 13:15) Medications Given in ED Current Medications Medications Dose Ordered Sig/Angel Luis Route Start Time Stop Time Status Last Admin Dose Admin Ondansetron HCl 4 mg ONCE ONCE IVP 04/29/22 13:15 04/29/22 13:18 DC 04/29/22 13:25 4 MG Vital Signs/I&O 04/29/22 12:50 Temp 36.4 Pulse 98 Resp 16 B/P (MAP) 149/74 (99) Pulse Ox 97 O2 Delivery Room Air Capillary Refill : Progress Note : Progress Note 1. COVID POSITIVE/ DEHYDRATION: - COVID test positive - Rapid strep/ Rapid Flu : - UA is positive for ketones - CBC:unremarkable - CMP:unremarkable - NS IVF bolus in ER with Zofran iv - Advised Vitamin C/ zinc, in addition to continuing vitamins - Advised adequate hydration - Prescription for Zofran - Follow up with PCP and [facility] [facility] in the next 3 to 5 days. -The patient was seen in the ED, and treated appropriately to presentation at a specific point in time. Patient is informed that there is a possibility that disease and illness can evolve and change in acuity rapidly or slowly after patient is discharged from the ER. Precautionary advice given to the patient for immediate return to ER if symptoms worsen or do not resolve, and to seek emergency care sooner rather than later. Pt also advised on the importance of PCP follow up and compliance with management and follow up plan with PCP and/or specialist, as this is part of the management plan. Pt verbally expressed understanding. Departure Impression Primary Impression: COVID-19 affecting in first trimester Additional Impression: Dehydration during Disposition: 01 HOME, SELF-CARE Condition: Improved Departure-Patient Inst. Referrals: KYLAH WILLS MD (PCP/Family) Primary Care Physician Patient Instructions: Dehydration, Adult (DC), COVID-19 and Add. Discharge Instructions: - Advised Vitamin C/ zinc, in addition to continuing vitamins - Advised adequate hydration - Prescription for Zofran - Follow up with PCP and [facility] [facility] in the next 3 to 5 days. - Return to ER if symptoms worsen All discharge instructions reviewed with patient and/or family. Voiced understanding. Scripts Ondansetron (Ondansetron Odt) 4 Mg Tab.rapdis 4 MG PO TID for Nausea/Vomiting for 7 Days, #21 TAB Prov: DONNA PAULSON MD 04/29/22 DONNA PAULSON MD Apr 29, 2022 13:07
[2022-04-29] MEDS ORDERED: NS IV 1000 ML 1,000 ML ONE (13:12)
[2022-04-29] MEDS ORDERED: NS IV 1000 ML 1,000 ML IV SCH (13:15)
[2022-04-29] MEDS ORDERED: ONDANSETRON 4 MG/2 ML (SDV) Z0FRAN IVP ONE (13:15)
[2022-04-29 14:04] LABS: BASOPHILS % (AUTO) 1 % (0-10); EOSINOPHILS % (AUTO) 0 % (0-10); HEMATOCRIT 34 % (35-52); HEMOGLOBIN 11.8 g/dL (11.5-16.0); LYMPHOCYTES # (AUTO) 0.8 10^3/uL (1.0-4.0); LYMPHOCYTES % (AUTO) 19 % (12-44); MEAN CORPUSCULAR HEMOGLOBIN 30 pg (25-34); MEAN CORPUSCULAR HGB CONC 35 g/dL (32-36); MEAN CORPUSCULAR VOLUME 87 fL (80-99); MEAN PLATELET VOLUME 10.6 fL (9.0-12.2); MONOCYTES # (AUTO) 0.5 10^3/uL (0.0-1.0); MONOCYTES % (AUTO) 13 % (0-12); NEUTROPHILS # (AUTO) 2.6 10^3/uL (1.8-7.8); NEUTROPHILS % (AUTO) 66 % (42-75); PLATELET COUNT 235 10^3/uL (130-400); WHITE BLOOD COUNT 3.9 10^3/uL (4.3-11.0)
[2022-04-29 14:11] LABS: GLUCOSE, URINE (UA) NEGATIVE (NEGATIVE); KETONES,URINE 2+ (NEGATIVE); LEUKOCYTE ESTERASE ,URINE NEGATIVE (NEGATIVE); NITRITE,URINE NEGATIVE (NEGATIVE); PROTEIN,URINE 1+ (NEGATIVE)
[2022-04-29 14:15] LABS: BACTERIA,URINE LARGE /HPF; BILIRUBIN,URINE 1+ (NEGATIVE); CLARITY,URINE CLOUDY; COLOR,URINE DARK YELLOW; SQUAMOUS EPITHELIAL CELL,UR >50 /HPF
[2022-04-29 14:20] LABS: BILIRUBIN,TOTAL 0.2 MG/DL (0.1-1.0); CALCIUM 8.1 MG/DL (8.5-10.1); CREATININE SERUM 0.62 MG/DL (0.60-1.30); MAGNESIUM 1.7 MG/DL (1.6-2.4); POTASSIUM 3.9 MMOL/L (3.6-5.0)
[2022-04-29 14:21] LABS: ALBUMIN 3.7 GM/DL (3.2-4.5); TOTAL PROTEIN 6.5 GM/DL (6.4-8.2)
[2022-04-29 14:22] LABS: AMPHETAMINE SCREEN, URINE NEGATIVE (NEGATIVE); BARBITURATE SCREEN URINE NEGATIVE (NEGATIVE); BENZODIAZEPINES SCREEN URINE NEGATIVE (NEGATIVE); CANNABINOID SCREEN, URINE POSITIVE (NEGATIVE); COCAINE SCREEN URINE NEGATIVE (NEGATIVE); METHADONE STAT NEGATIVE (NEGATIVE); OPIATE SCREEN URINE NEGATIVE (NEGATIVE); OXYCODONE STAT NEGATIVE (NEGATIVE); PROPOXYPHENE STAT NEGATIVE (NEGATIVE); TRICYCLIC ANTIDEPRESSANTS SCRE NEGATIVE (NEGATIVE)
[2022-04-29] MEDS ORDERED: ONDA4TAB11 PO (14:43)
[2022-04-29 14:44] VITALS: BP 138/72
== END 2022-04-29 14:47 | disposition home or self-care (01) ==
LOC: EDUNIT# 12:40 → ER FS 12:44
DX: O98.511 Other viral diseases complicating pregnancy, first trimester (principal); U07.1 COVID-19; O99.281 Endocrine, nutritional and metabolic diseases complicating pregnancy, first trimester; E86.0 Dehydration; O99.211 Obesity complicating pregnancy, first trimester; Z3A.08 8 weeks gestation of pregnancy; Z68.37 Body mass index [BMI] 37.0-37.9, adult; Z91.040 Latex allergy status; Z28.310 Unvaccinated for COVID-19
CPT/HCPCS: 36415; 80053; 80306; 81000; 83735; 85025; 87430; 87636

== ENCOUNTER → 2022-05-11 | Outpatient (CLI) | payer MEDICAID ==
[2022-05-11 12:13] LABS: HEMATOCRIT 35 % (35-52); HEMOGLOBIN 12.4 g/dL (11.5-16.0); MEAN CORPUSCULAR HEMOGLOBIN 30 pg (25-34); MEAN CORPUSCULAR HGB CONC 36 g/dL (32-36); MEAN CORPUSCULAR VOLUME 84 fL (80-99); MEAN PLATELET VOLUME 10.9 fL (9.0-12.2); PLATELET COUNT 299 10^3/uL (130-400); WHITE BLOOD COUNT 8.5 10^3/uL (4.3-11.0)
== END ==
LOC: LAB FS 11:47
PROVIDERS: ATTEND Family Medicine
DX: O21.9 Vomiting of pregnancy, unspecified (principal); Z3A.00 Weeks of gestation of pregnancy not specified
CPT/HCPCS: 36415; 85027; 86762; 86780; 86850; 86900; 86901; 87088; 87340; 87389

== ENCOUNTER → 2022-06-08 | Outpatient (CLI) | payer MEDICAID | LOC: LABNPT 14:49 | PROVIDERS: ATTEND Family Medicine | DX: Z01.89 Encounter for other specified special examinations (principal) | CPT/HCPCS: 87491; 87591 ==

== ENCOUNTER → 2022-08-09 | Outpatient (CLI) | payer MEDICAID ==
--- NOTE | 2022-08-09 17:04 | Diagnostic Imaging Report ---
INDICATION: , anatomic survey. TECHNIQUE: Multiple real-time grayscale images were obtained over the gravid uterus. COMPARISON: None. FINDINGS: There is a single live intrauterine gestation in breech presentation. The cervix is measured at 3.4 cm. The placenta is posterior without evidence of previa. The heart rate measures 152 BPM. The amniotic fluid index measures 13.5 cm. The stomach is seen. The four-chamber heart is seen. The left ventricular outflow tract is seen. The kidneys are seen. The cord insertion is seen. The lateral ventricle is seen. The cerebellum and cisterna magna are seen. The upper spine is seen. A three-vessel cord is demonstrated with two umbilical arteries. The bladder is seen. The lower spine is seen. The right ventricular outflow tract is seen. Biometrical measurements are as follows: Biparietal 5.38 cm, age 22 weeks 3 days. Head circumference 20.73 cm, age 22 weeks 6 days. Abdominal circumference 18.54 cm, age 23 weeks 3 days. Femur length 3.81 cm, age 22 weeks 2 days. Sonographic estimate age: 22 weeks 6 days. Sonographic estimated date of delivery: 12/07/2022. Estimated Weight: 536 gm (+/- 78 gm). LMP percentile: 70%. heart rate: 152 beats per minute. number: 1 of 1. IMPRESSION: 1. Single live intrauterine gestation measuring at 22 weeks and 6 days which is within range of the clinical dates. 2. Anatomic survey. No abnormality identified. Dictated by: Dictated on workstation # [id number]
== END ==
LOC: RAD 12:11
PROVIDERS: ATTEND Nurse Practitioner Women's Health
DX: Z36.9 Encounter for antenatal screening, unspecified (principal); Z3A.22 22 weeks gestation of pregnancy
CPT/HCPCS: 76805

== ENCOUNTER 2022-08-30 16:47 | Emergency (ER) | payer MEDICAID ==
[~2022-08-30] VITALS: Ht 162 cm; Wt 106.2 kg
[2022-08-30 16:56] VITALS: BP 159/94
[2022-08-30] MEDS ORDERED: ACETAMINOPHEN 325 MG TABLET PO STA (16:57)
--- NOTE | 2022-08-30 16:58 | ED General ---
General Chief Complaint: Cough/Cold/Flu Symptoms Stated Complaint: OB,SORE THROAT,PRESSURE IN LEGS,BODY ACHES Source of Information: Patient History of Present Illness Date Seen by Provider: Aug 30, 2022 Time Seen by Provider: 16:50 Initial Comments 27-year-old female presenting with complaint of generalized body aches, sore throat, cough. She has felt pressure in her back. She is and has an estimated due date in November. She denies having any vaginal bleeding or discharge. There is no pain with urination but she feels like she has to pee and only a small amount comes out. She did take Tylenol yesterday but has not taken anything for her symptoms today. She tried to call Dr. BEAL's office but states that no one has called her back. She is following with Dr. BEAL for her . Timing/Duration: 1-2 Days Severity: Moderate Modifying Factors: improves with Medication (Tylenol helped yesterday) Associated Systoms: No Chest Pain; Cough; No Diaphoresis, No Fever/Chills; Headaches, Malaise, Nausea/Vomiting (Chronic nausea due to ); No Rash, No Seizure, No Shortness of Air, No Syncope, No Weakness Allergies and Home Medications Allergies Coded Allergies: latex (Verified Allergy, Unknown, 02/26/19) nystatin (Verified Allergy, Unknown, 02/26/19) Uncoded Allergies: MUSCLE RELAXANTS (Allergy, Unknown, 02/26/19) PAIN MEDICATION (Allergy, Unknown, 02/26/19) Patient Home Medication List Home Medication List Reviewed: Yes Cefuroxime Axetil (Cefuroxime) 250 Mg Tablet, 250 MG PO BID Prescribed by: OTF WIN on 02/26/19444 Famotidine (Pepcid) 20 Mg Tablet, 20 MG PO q12 Prescribed by: SOSA MARTINS on 06/24/191917 Loperamide HCl (Imodium A-D) 2 Mg Capsule, 2 MG PO Q4H Prescribed by: SOSA MARTINS on 06/24/191917 Ondansetron (Ondansetron Odt) 4 Mg Tab.rapdis, 4 MG PO Q6H PRN for NA USEA/VOMITING Prescribed by: OTF WIN on 02/26/19444 Ondansetron (Ondansetron Odt) 4 Mg Tab.rapdis, 4 MG PO Q6H Prescribed by: SOSA MARTINS on 06/24/19 191 Ondansetron (Ondansetron Odt) 4 Mg Tab.rapdis, 4 MG PO TID Prescribed by: DONNA PAULSON MD on 04/29/22 1443 Review of Systems Review of Systems Constitutional: No chills, No fever EENTM: nose congestion, throat pain Respiratory: cough Cardiovascular: no symptoms reported Gastrointestinal: see HPI Genitourinary: see HPI Musculoskeletal: see HPI (generalized body aches and low back pain) Skin: No rash Psychiatric/Neurological: Headache Past Dllwyjc-Gvnpec-Dowlnr Hx Patient Social History Tobacco Use?: No Use of E-Cig and/or Vaping dev: No Substance use?: No Alcohol Use?: No Pt feels they are or have been: Unable to obtain Seasonal Allergies Seasonal Allergies: No Past Medical History Surgery/Hospitalization HX: Asthma Surgeries: Yes Gallbladder Respiratory: No Cardiac: No Neurological: No Genitourinary: No Gastrointestinal: No Musculoskeletal: No Endocrine: No HEENT: No Cancer: No Psychosocial: No Integumentary: No Blood Disorders: No Physical Exam Vital Signs Vital Signs - First Documented 08/30/22 16:56 Temp 36.1 Pulse 105 Resp 16 B/P (MAP) 159/94 (115) Pulse Ox 96 O2 Delivery Room Air Capillary Refill : Height, Weight, BMI Height: 5'4.00" Weight: 270lbs. oz. 122.735467yy; 40.00 BMI Method:Stated General Appearance: No Apparent Distress, WD/WN, Obese HEENT: PERRL/EOMI, Moist Mucous Membranes, Pharyngeal Erythema; No Tonsillar Exudate Neck: Full Range of Motion, Normal Inspection, Non Tender, Supple Respiratory: Chest Non Tender, Lungs Clear, Normal Breath Sounds, No Accessory Muscle Use, No Respiratory Distress Cardiovascular: Regular Rate, Rhythm, Normal Peripheral Pulses Gastrointestinal: Normal Bowel Sounds, No Pulsatile Mass, Non Tender, Soft Back: No CVA Tenderness Extremity: Normal Capillary Refill, Normal Inspection, No Pedal Edema Neurologic/Psychiatric: Alert, Oriented x3 Skin: Normal Color, Warm/Dry Progress/Results/Core Measures Suspected Sepsis SIRS Temperature: Pulse: Respiratory Rate: Blood Pressure / Mean: Results/Orders Lab Results Laboratory Tests Test 08/30/22 17:06 Range/Units Urine Color YELLOW Urine Clarity CLOUDY Urine pH 8.0 5-9 Urine Specific [place] 1.020 1.016-1.022 Urine Protein NEGATIVE NEGATIVE Urine Glucose (UA) NEGATIVE NEGATIVE Urine Ketones NEGATIVE NEGATIVE Urine Nitrite NEGATIVE NEGATIVE Urine Bilirubin NEGATIVE NEGATIVE Urine Urobilinogen 2.0 < = 1.0 MG/DL Urine Leukocyte Esterase TRACE H NEGATIVE Urine RBC (Auto) NEGATIVE NEGATIVE Urine RBC 0-2 /HPF Urine WBC 0-2 /HPF Urine Squamous Epithelial Cells 25-50 H /HPF Urine Crystals NONE /LPF Urine Bacteria LARGE H /HPF Urine Casts NONE /LPF Urine Mucus MODERATE H /LPF Urine Culture Indicated NO Influenza Type A (RT-PCR) Not Detected Not Detecte Influenza Type B (RT-PCR) Not Detected Not Detecte SARS-CoV-2 RNA (RT-PCR) Not Detected Not Detecte Group A Streptococcus Screen NEGATIVE NEGATIVE My Orders Orders - TY FORBES MD Ua Culture If Indicated (08/30/22 16:52) Covid 19 Inhouse Test (08/30/22 16:52) Rapid Strep A Screen (08/30/22 16:52) Influenza A And B By Pcr (08/30/22 16:52) Isolation Central Supply Req (08/30/22 16:52) Acetaminophen Tablet/Caplet (Tylenol T (08/30/22 16:57) Heart Tones (08/30/22 16:58) Vital Signs/I&O 08/30/22 16:56 Temp 36.1 Pulse 105 Resp 16 B/P (MAP) 159/94 (115) Pulse Ox 96 O2 Delivery Room Air Capillary Refill : Progress Note #1: Progress Note Check UA to look for UTI. Nasal swab for Influenza and Covid testing. Throat swab for Rapid strep test. Acetaminophen 650 mg po for body aches. Obtain heart tones. Encourage fluids here in ED Progress Note #2: Progress Note Urinalysis was negative for UTI but she did have elevated specific gravity of 1.020. Her microscopic exam showed large bacteria but she also had 25-50 epithelial cells. Encourage fluids and hydration to help manage this. Her swab for strep, COVID, influenza were all negative. Encourage symptomatic care and follow-up with Dr. BEAL Departure Impression Primary Impression: Sore throat Additional Impressions: Body aches Incidental Disposition: 01 HOME, SELF-CARE Condition: Stable Departure-Patient Inst. Decision time for Depature: 17:44 Referrals: KYLAH WILLS MD (PCP) Primary Care Physician FRANCES BEAL DO (Family) Primary Care Physician Patient Instructions: Dehydration, Adult ED, Sore Throat, Adult ED Add. Discharge Instructions: Drink more water and stay well hydrated. Your tests to look for Covid, Influenza, Strep or UTI were all negative. It does look like you might be slightly dehydrated. Take Acetaminophen to help with pain and body aches. Check back with Dr. Beal for continued symptoms All discharge instructions reviewed with patient and/or family. Voiced unders tanding. TY FORBES MD Aug 30, 2022 16:58
[2022-08-30 17:16] LABS: BILIRUBIN,URINE NEGATIVE (NEGATIVE); CLARITY,URINE CLOUDY; COLOR,URINE YELLOW; GLUCOSE, URINE (UA) NEGATIVE (NEGATIVE); KETONES,URINE NEGATIVE (NEGATIVE); LEUKOCYTE ESTERASE ,URINE TRACE (NEGATIVE); NITRITE,URINE NEGATIVE (NEGATIVE); PROTEIN,URINE NEGATIVE (NEGATIVE)
[2022-08-30 17:29] LABS: BACTERIA,URINE LARGE /HPF; RBC,URINE 0-2 /HPF; SQUAMOUS EPITHELIAL CELL,UR 25-50 /HPF; WBC,URINE 0-2 /HPF
== END 2022-08-30 17:53 | disposition home or self-care (01) ==
LOC: EDUNIT# 16:47 → ER FS 16:49
DX: J02.9 Acute pharyngitis, unspecified (principal); M79.18 Myalgia, other site; Z33.1 Pregnant state, incidental; E66.9 Obesity, unspecified; Z91.040 Latex allergy status; Z28.310 Unvaccinated for COVID-19; Z20.822 Contact with and (suspected) exposure to COVID-19
CPT/HCPCS: 81000; 87430; 87636

== ENCOUNTER 2022-10-11 08:38 | Emergency (ER) | payer MEDICAID ==
[~2022-10-11] VITALS: Ht 162 cm; Wt 125.0 kg
[2022-10-11 09:09] LABS: BILIRUBIN,URINE NEGATIVE (NEGATIVE); CLARITY,URINE CLOUDY; GLUCOSE, URINE (UA) NEGATIVE (NEGATIVE); KETONES,URINE NEGATIVE (NEGATIVE); LEUKOCYTE ESTERASE ,URINE NEGATIVE (NEGATIVE); NITRITE,URINE NEGATIVE (NEGATIVE); PROTEIN,URINE NEGATIVE (NEGATIVE)
[2022-10-11 09:18] LABS: BACTERIA,URINE LARGE /HPF; COLOR,URINE DK YELLOW; SQUAMOUS EPITHELIAL CELL,UR >50 /HPF
--- NOTE | 2022-10-11 09:45 | ED Abdominal Pain ---
General Chief Complaint: Abdominal/GI Problems Stated Complaint: ABD PAIN Nursing Triage Note: Patient has presented to ER with cc of upper left abd pain, she reports that she has had burning for the last week, she has taken tylenold for her symptoms. How ever last night about 0300 she rolled over and felt something pull and she more severe burning. She is 31 weeks . Source of Information: Patient Exam Limitations: No Limitations History of Present Illness Date Seen by Provider: Oct 11, 2022 Time Seen by Provider: 18:41 Initial Comments This 27-year-old young lady presents to the emergency room at about 31 weeks gestational age with complaints of left upper abdominal pain. She first noticed the pain about a week ago. Today she rolled in bed and noticed a ripping sensation as she moved. Pain has been worse since that time. Tylenol does not seem to control the pain well. She has tenderness even with more superficial touch. She has had significant nausea and vomiting with hyperemesis gravidarum during her . She denies any diarrhea or constipation. She takes Zofran at home to control her nausea but is not on any antiacid therapy. Her primary care provider is Dr. Wills. Her entry level staff accountant is Dr. CLARKE. Allergies and Home Medications Allergies Coded Allergies: latex (Verified Allergy, Unknown, 02/26/19) nystatin (Verified Allergy, Unknown, 02/26/19) Uncoded Allergies: MUSCLE RELAXANTS (Allergy, Unknown, 02/26/19) PAIN MEDICATION (Allergy, Unknown, 02/26/19) Patient Home Medication List Home Medication List Reviewed: Yes Cefuroxime Axetil (Cefuroxime) 250 Mg Tablet, 250 MG PO BID Prescribed by: OTF WIN on 02/26/19444 Famotidine (Pepcid) 20 Mg Tablet, 20 MG PO q12 Prescribed by: SOSA MARTINS on 06/24/191917 Famotidine (Pepcid) 20 Mg Tablet, 20 MG PO BID Prescribed by: YADIRA BEASLEY on 10/11/22 121 Lidocaine (Topicaine) 4 % Gel..gram., 113 GM TP Q4H PRN for PAIN-BREAKTHROUGH Prescribed by: YADIRA BEASLEY on 10/11/22 1212 Loperamide HCl (Imodium A-D) 2 Mg Capsule, 2 MG PO Q4H Prescribed by: SOSA MARTINS on 06/24/191917 Ondansetron (Ondansetron Odt) 4 Mg Tab.rapdis, 4 MG PO Q6H PRN for NAUSEA/VOMITING Prescribed by: OTF WIN on 02/26/19 3860 Ondansetron (Ondansetron Odt) 4 Mg Tab.rapdis, 4 MG PO Q6H Prescribed by: SOSA MARTINS on 06/24/191917 Ondansetron (Ondansetron Odt) 4 Mg Tab.rapdis, 4 MG PO TID Prescribed by: DONNA PAULSON MD on 04/29/22 1443 Review of Systems Review of Systems Constitutional: no symptoms reported EENTM: No Symptoms Reported Respiratory: No Symptoms Reported Cardiovascular: No Symptoms Reported Gastrointestinal: See HPI Genitourinary: See HPI Musculoskeletal: no symptoms reported Skin: no symptoms reported Psychiatric/Neurological: No Symptoms Reported Endocrine: No Symptoms Reported Past Ckcssgs-Ephpew-Qollkx Hx Patient Social History Tobacco Use?: No Use of E-Cig and/or Vaping dev: No Substance use?: No Alcohol Use?: No Seasonal Allergies Seasonal Allergies: Yes Past Medical History Surgery/Hospitalization HX: Asthma Surgeries: Yes Gallbladder Respiratory: No Cardiac: No Neurological: No : Yes Genitourinary: No Gastrointestinal: Yes (Hyperemesis gravidarum) Musculoskeletal: No Endocrine: No HEENT: No Cancer: No Psychosocial: No Integumentary: No Blood Disorders: No Physical Exam Vital Signs Vital Signs - First Documented 10/11/22 08:57 Temp 36.2 Pulse 82 Resp 16 B/P (MAP) 133/86 (102) O2 Delivery Room Air Capillary Refill : Height/Weight/BMI Height: 5'4.00" Weight: 270lbs. oz. 122.320973mw; 47.00 BMI Method:Stated General Appearance: WD/WN, mild distress HEENT: normal ENT inspection Neck: normal inspection Respiratory: lungs clear, normal breath sounds, no respiratory distress Cardiovascular: regular rate, rhythm, no edema, no murmur Gastrointestinal: soft, other (Appropriately gravid for gestational age. Mild to moderate tenderness over the epigastrium and left upper quadrant beneath the costal margin. No tenderness of the ribs or costochondral region) Extremities: normal inspection, no pedal edema Neurologic/Psychiatric: alert, oriented x 3, other (Anxious) Skin: normal color, warm/dry; No rash; other (No rashes or erythema over the area of pain) Progress/Results/Core Measures Results/Orders Lab Results Laboratory Tests Test 10/11/22 09:03 10/11/22 10:50 Range/Units Urine Color DK YELLOW Urine Clarity CLOUDY Urine pH 6.0 5-9 Urine Specific [place] >=1.030 1.016-1.022 Urine Protein NEGATIVE NEGATIVE Urine Glucose (UA) NEGATIVE NEGATIVE Urine Ketones NEGATIVE NEGATIVE Urine Nitrite NEGATIVE NEGATIVE Urine Bilirubin NEGATIVE NEGATIVE Urine Urobilinogen 0.2 < = 1.0 MG/DL Urine Leukocyte Esterase NEGATIVE NEGATIVE Urine RBC (Auto) NEGATIVE NEGATIVE Urine RBC NONE /HPF Urine WBC 5-10 H /HPF Urine Squamous Epithelial Cells >50 H /HPF Urine Crystals NONE /LPF Urine Bacteria LARGE H /HPF Urine Casts NONE /LPF Urine Mucus NEGATIVE /LPF Urine Culture Indicated NO White Blood Count 10.7 4.3-11.0 10^3/uL Red Blood Count 3.78 L 3.80-5.11 10^6/uL Hemoglobin 11.4 L 11.5-16.0 g/dL Hematocrit 33 L 35-52 % Mean Corpuscular Volume 87 80-99 fL Mean Corpuscular Hemoglobin 30 25-34 pg Mean Corpuscular Hemoglobin Concent 35 32-36 g/dL Red Cell Distribution Width 13.0 10.0-14.5 % Platelet Count 301 130-400 10^3/uL Mean Platelet Volume 10.5 9.0-12.2 fL Immature Granulocyte % (Auto) 0 % Neutrophils (%) (Auto) 77 H 42-75 % Lymphocytes (%) (Auto) 18 12-44 % Monocytes (%) (Auto) 4 0-12 % Eosinophils (%) (Auto) 1 0-10 % Basophils (%) (Auto) 0 0-10 % Neutrophils # (Auto) 8.2 H 1.8-7.8 10^3/uL Lymphocytes # (Auto) 2.0 1.0-4.0 10^3/uL Monocytes # (Auto) 0.4 0.0-1.0 10^3/uL Eosinophils # (Auto) 0.1 0.0-0.3 10^3/uL Basophils # (Auto) 0.0 0.0-0.1 10^3/uL Immature Granulocyte # (Auto) 0.0 0.0-0.1 10^3/uL Sodium Level 134 L 135-145 MMOL/L Potassium Level 4.2 3.6-5.0 MMOL/L Chloride Level 101 98-107 MMOL/L Carbon Dioxide Level 21 21-32 MMOL/L Anion Gap 12 5-14 MMOL/L Blood Urea Nitrogen 7 7-18 MG/DL Creatinine 0.49 L 0.60-1.30 MG/DL Estimat Glomerular Filtration Rate 131 BUN/Creatinine Ratio 14 Glucose Level 93 70-105 MG/DL Calcium Level 9.1 8.5-10.1 MG/DL Corrected Calcium 9.3 8.5-10.1 MG/DL Total Bilirubin 0.2 0.1-1.0 MG/DL Aspartate Amino Transf (AST/SGOT) 7 5-34 U/L Alanine Aminotransferase (ALT/SGPT) 9 0-55 U/L Alkaline Phosphatase 73 40-136 U/L C-Reactive Protein 1.67 H <0.50 MG/DL Total Protein 7.0 6.4-8.2 GM/DL Albumin 3.7 3.2-4.5 GM/DL Lipase 20 8-78 U/L My Orders Orders - YADIRA ESPAÑA MD Ua Culture If Indicated (10/11/22 08:41) Lidocaine 2% Viscous 15 Ml (Xylocaine Vi (10/11/22 10:00) Antacid Suspension (Mylanta Suspension (10/11/22 10:00) Cbc With Automated Diff (10/11/22 10:42) Comprehensive Metabolic Panel (10/11/22 10:42) Lipase (10/11/22 10:42) Crp Fs (10/11/22 10:42) Acetaminophen Tablet (Tylenol Tablet) (10/11/22 11:30) Medications Given in ED Vital Signs/I&O 10/11/22 10/11/22 08:57 12:01 Temp 36.2 36.2 Pulse 82 82 Resp 16 16 B/P (MAP) 133/86 (102) 133/86 O2 Delivery Room Air Room Air Blood Pressure Mean: 102 Progress Progress Note : Progress Note Trial treatment of GI cocktail was provided. Despite nursing staff informing her to expect numbness of the mouth, patient had an anxiety attack regarding the numb sensation in her mouth and throat. She reports GI cocktail minimally i mproved her pain. Labs were therefore obtained including CBC, CMP, and lipase. No significant abnormalities were noted. I discussed the situation with Dr. CLARKE, her entry level staff accountant. He and I agree that the differential includes gastritis from her hyperemesis gravidarum, nerve impingement, or costochondral pain from . See discharge instructions for further discussion. Departure Impression Primary Impression: Left upper quadrant pain Additional Impression: Qualified Codes: Z3A.31 - 31 weeks gestation of Disposition: 01 HOME, SELF-CARE Condition: Stable Departure-Patient Inst. Decision time for Depature: 12:00 Referrals: KYLAH WILLS MD (PCP) Primary Care Physician Patient Instructions: Severe Abdominal Pain Add. Discharge Instructions: The exact cause of your pain is uncertain but some possibilities that would be common in include musculoskeletal pain in the rib cage from pressure on the ribs, nerve impingement, or gastritis (inflammation of the stomach). You may continue taking Tylenol (acetaminophen) up to 1000 mg every 6 hours as needed for pain. Topical treatments such as 20-minute intervals of icing or topical lidocaine may also be helpful. Position changes such as elevating your arm or stretching out your back may be helpful. Take Pepcid as prescribed to treat possible gastritis. Please contact Dr. CLARKE if these measures are not improving her symptoms. Return to the ER if you have worsening symptoms despite following these instructions. You may continue using Zofran (ondansetron) as prescribed for nausea and vomiting. All discharge instructions reviewed with patient and/or family. Voiced understanding. Scripts Lidocaine (Topicaine) 4 % Gel..gram. 113 GM TP Q4H PRN for PAIN-BREAKTHROUGH, #1 EA Prov: YADIRA ESPAÑA MD 10/11/22 Famotidine (Pepcid) 20 Mg Tablet 20 MG PO BID, #30 TAB Prov: YADIRA ESPAÑA MD 10/11/22 Copy Copies To 1: FRANCES CLARKE DO Copies To 2: KYLAH WILLS MD, JOSHUA T MD Oct 11, 2022 09:45
[2022-10-11] MEDS ORDERED: ANTACID SUSP 30 ML UDC (MYLANTA) PO ONE (10:00)
[2022-10-11] MEDS ORDERED: LIDOCAINE 2% VISCOUS 15 ML UDC PO ONE (10:00)
[2022-10-11 11:07] LABS: BASOPHILS % (AUTO) 0 % (0-10); EOSINOPHILS # (AUTO) 0.1 10^3/uL (0.0-0.3); EOSINOPHILS % (AUTO) 1 % (0-10); HEMATOCRIT 33 % (35-52); HEMOGLOBIN 11.4 g/dL (11.5-16.0); LYMPHOCYTES % (AUTO) 18 % (12-44); MEAN CORPUSCULAR HEMOGLOBIN 30 pg (25-34); MEAN CORPUSCULAR HGB CONC 35 g/dL (32-36); MEAN CORPUSCULAR VOLUME 87 fL (80-99); MEAN PLATELET VOLUME 10.5 fL (9.0-12.2); MONOCYTES # (AUTO) 0.4 10^3/uL (0.0-1.0); MONOCYTES % (AUTO) 4 % (0-12); NEUTROPHILS # (AUTO) 8.2 10^3/uL (1.8-7.8); NEUTROPHILS % (AUTO) 77 % (42-75); PLATELET COUNT 301 10^3/uL (130-400); WHITE BLOOD COUNT 10.7 10^3/uL (4.3-11.0)
[2022-10-11 11:19] LABS: BILIRUBIN,TOTAL 0.2 MG/DL (0.1-1.0); CALCIUM 9.1 MG/DL (8.5-10.1); CREATININE SERUM 0.49 MG/DL (0.60-1.30); POTASSIUM 4.2 MMOL/L (3.6-5.0)
[2022-10-11 11:20] LABS: ALBUMIN 3.7 GM/DL (3.2-4.5)
[2022-10-11] MEDS ORDERED: ACETAMINOPHEN 500 MG TAB (TYLENOL) PO ONE (11:30)
[2022-10-11 12:01] VITALS: BP 133/86
[2022-10-11] MEDS ORDERED: FAMO-119 PO (12:12)
[2022-10-11] MEDS ORDERED: LIDO113G3 TP (12:12)
== END 2022-10-11 12:16 | disposition home or self-care (01) ==
LOC: EDUNIT# 08:38 → ER FS 08:39
DX: O26.893 Other specified pregnancy related conditions, third trimester (principal); R10.12 Left upper quadrant pain; R10.13 Epigastric pain; Z91.040 Latex allergy status; Z28.310 Unvaccinated for COVID-19; Z3A.31 31 weeks gestation of pregnancy
CPT/HCPCS: 36415; 80053; 81000; 83690; 85025; 86141

== ENCOUNTER 2022-11-10 10:19 | Outpatient (CLI) | payer MEDICAID ==
[~2022-11-10] VITALS: Ht 162.6 cm; Wt 111.9 kg
[~2022-11-10 10:19] MED LIST changes: +LIDO113G3 TP
[2022-11-10 10:33] VITALS: BP 123/78
[2022-11-10 10:34] LABS: BILIRUBIN,URINE NEGATIVE (NEGATIVE); CLARITY,URINE CLEAR; COLOR,URINE YELLOW; GLUCOSE, URINE (UA) NEGATIVE (NEGATIVE); KETONES,URINE 1+ (NEGATIVE); LEUKOCYTE ESTERASE ,URINE NEGATIVE (NEGATIVE); NITRITE,URINE NEGATIVE (NEGATIVE); PH,URINE 6.5 (5-9); PROTEIN,URINE NEGATIVE (NEGATIVE)
[2022-11-10 11:03] LABS: BACTERIA,URINE LARGE /HPF; RBC,URINE RARE /HPF
--- NOTE | 2022-11-12 15:18 | OB Triage Report ---
Standard Progress Note Progress Notes/Assess & Plan Date Seen by a Provider: Nov 10, 2022 Time Seen by a Provider: 11:00 Expected Date of Delivery: Dec 11, 2022 Gestational Age in Weeks: 35 Gestational Age in Days: 4 LMP/MADDI Comment: December 11, 2022 Progress/Assessment & Plan 27yo at 35w4d presents to OB with decreased FM. Patient evaluated by RN, not physician. NST reviewed: FHTs 150's with accels and moderate variability. No concerning decels. No tocos. Impression: Reactive NST on 11/10/22. Final Diagnosis Reactive NST Diagnosis/Problems Diagnosis/Problems (1) Decreased movement Status: Acute Qualifiers: Qualified Codes: O36.8130 - Decreased movements, third trimester, not applicable or unspecified (2) Status: Acute Qualifiers: Qualified Codes: Z3A.35 - 35 weeks gestation of JUSTIN SORIANO DO Nov 12, 2022 15:18
== END 2022-11-10 11:10 | disposition home or self-care (01) ==
LOC: LDRP 10:19 → WSo 10:19
PROVIDERS: ATTEND Obstetrics & Gynecology
DX: Z34.90 Encounter for supervision of normal pregnancy, unspecified, unspecified trimester (principal); Z3A.00 Weeks of gestation of pregnancy not specified
CPT/HCPCS: 81000; 87088; 99212

== ENCOUNTER 2022-11-27 08:29 | Outpatient (CLI) | payer MEDICAID ==
[~2022-11-27] VITALS: Ht 162.6 cm; Wt 112.7 kg
[2022-11-27 08:49] VITALS: BP 132/87
[2022-11-27] MEDS ORDERED: PREN-37 PO (08:54)
[2022-11-27 11:00] VITALS: BP 132/87
--- NOTE | 2022-11-28 08:44 | Physician Query-Final Dx ---
DEEJAY,11/28/22 0844: Clinic Account Progress/Dx Physician Query: Please give diagnosis Please include # weeks gestation Date of Service Nov 27, 2022 at 08:29 FRANCES CLARKE DO 11/28/22 0954: Clinic Account Progress/Dx DIAGNOSIS: Diagnosis 37 week IUP Irregular contractions DEEAJY,SepNov 28, 2022 08:44 FRANCES CLARKE DO Nov 28, 2022 09:54
== END 2022-11-27 11:00 | disposition home or self-care (01) ==
LOC: WSo 08:29 → LDRP 08:29 → WSo 11:00
PROVIDERS: ATTEND Obstetrics & Gynecology
DX: O47.1 False labor at or after 37 completed weeks of gestation (principal); Z3A.38 38 weeks gestation of pregnancy
CPT/HCPCS: 99214

== ENCOUNTER 2022-12-08 05:51 | Inpatient (IN) | payer MEDICAID ==
[2022-12-08] VITALS (26 sets, daily range): BP systolic 105–145; BP diastolic 58–84
[~2022-12-08] VITALS: Ht 162.6 cm; Wt 112.8 kg
[~2022-12-08 05:51] MED LIST changes: +PREN-37 PO
[2022-12-08] MEDS ORDERED: MINERAL OIL 30 ML UDC TOP PRN (07:15)
[2022-12-08 07:21] LABS: BASOPHILS % (AUTO) 0 % (0-10); EOSINOPHILS # (AUTO) 0.2 10^3/uL (0.0-0.3); EOSINOPHILS % (AUTO) 1 % (0-10); HEMATOCRIT 37 % (35-52); HEMOGLOBIN 12.2 g/dL (11.5-16.0); LYMPHOCYTES # (AUTO) 2.7 10^3/uL (1.0-4.0); LYMPHOCYTES % (AUTO) 23 % (12-44); MEAN CORPUSCULAR HEMOGLOBIN 29 pg (25-34); MEAN CORPUSCULAR HGB CONC 33 g/dL (32-36); MEAN CORPUSCULAR VOLUME 88 fL (80-99); MEAN PLATELET VOLUME 10.8 fL (9.0-12.2); MONOCYTES # (AUTO) 0.6 10^3/uL (0.0-1.0); MONOCYTES % (AUTO) 6 % (0-12); NEUTROPHILS % (AUTO) 69 % (42-75); PLATELET COUNT 276 10^3/uL (130-400); WHITE BLOOD COUNT 11.6 10^3/uL (4.3-11.0)
[2022-12-08 07:25] LABS: BILIRUBIN,URINE NEGATIVE (NEGATIVE); CLARITY,URINE SL CLOUDY; COLOR,URINE DARK YELLOW; GLUCOSE, URINE (UA) NEGATIVE (NEGATIVE); KETONES,URINE TRACE (NEGATIVE); LEUKOCYTE ESTERASE ,URINE NEGATIVE (NEGATIVE); NITRITE,URINE NEGATIVE (NEGATIVE); PROTEIN,URINE TRACE (NEGATIVE)
[2022-12-08 07:32] LABS: BACTERIA,URINE MODERATE /HPF; CALCIUM OXALATE CRYSTALS,UR LARGE /LPF; RBC,URINE 0-2 /HPF; WBC,URINE 0-2 /HPF
[2022-12-08] MEDS: D5 LR IV SOLUTION 1,000 ML IV SCH ×2 (07:33→22:27)
[2022-12-08] MEDS ORDERED: fentaNYL INJ 100 MCG/2 ML AMP IVP PRN (08:15)
[2022-12-08] MEDS ORDERED: OXYTOCIN PRE-MIX DRIP 500 ML IV SCH (08:15)
--- NOTE | 2022-12-08 09:56 | History & Physical-OB ---
OB - Chief Complaint & HPI Date/Time Date of Admission: Date of Admission: Dec 08, 2022 at 05:51 Date seen by a Provider: Dec 08, 2022 Time Seen by a Provider: 08:00 Chief Complaint/History OB-Reason for Admission/Chief: Onset of Labor Hx : 4 Hx Para: 2 Expected Date of Delivery: Dec 11, 2022 Gestational Age in Weeks: 39 Gestational Age in Days: 4 Other reason for admission: LABOR Admission Nurse Assessment Rev: Yes History of Labs MBT A NEG VDRL NR HBSAG NR HIV NR RUBELLA IMMUNE GBS NEG 1 HR 128 Allergies and Home Medications Allergies Coded Allergies: latex (Verified Allergy, Unknown, 02/26/19) nystatin (Verified Allergy, Unknown, 02/26/19) Uncoded Allergies: MUSCLE RELAXANTS (Allergy, Unknown, 02/26/19) PAIN MEDICATION (Allergy, Unknown, 02/26/19) Patient Home Medication List Home Medication List Reviewed: Yes Ondansetron (Ondansetron Odt) 4 Mg Tab.rapdis, 4 MG PO Q6H PRN for NAUSEA/VOMITING Prescribed by: OTF WIN on 02/26/19 0445 Last Action: Reviewed Vit/Iron Fumarate/FA ( Tablet) 27 Mg Iron-800 Mcg Tablet, 1 E ACH PO DAILY, (Reported) Entered as Reported by: GAYLA OTTO on 11/27/22 0854 Last Action: Reviewed OB - History Hx of Present Care: Yes Obstetrical Complications: None Medical Complications: None Patient Past Medical History NEG Social History/Family History Alcohol Use: Denies Use Recreational Drug Use: No 2nd Hand Smoke Exposure: No Immunizations Influenza Vaccine Up-to-Date: No; Not Current OB - Admission Exam Physical Exam Vitals: Vital Signs 12/08/22 07:47 Temp 36.4 Pulse 103 Resp 18 Pulse Ox 96 O2 Delivery Room Air HEENT: Moist Membranes Heart: Rhythm Normal Lungs: Clear Abdomen: Gravid Extremities: Normal Reflexes: Normal Cervical Dilatation: 5cm Effacement: 50% Station: -3 Membranes: Ruptured Amniotic Fluid: Clear Heart Rate: 130's Accelerations: Accelerations Present Decelerations: No Decelerations Short Term Variability: Present Senior Asp Net Developer Variability: Average (6-25) Contractions on Admission: 6-10 Minutes Apart Intensity: Mild Labs Laboratory Tests Test 12/08/22 06:05 12/08/22 06:20 Range/Units Urine Color DARK YELLOW Urine Clarity [place] CLOUDY Urine pH 6.0 5-9 Urine Specific [place] >=1.030 1.016-1.022 Urine Protein TRACE H NEGATIVE Urine Glucose (UA) NEGATIVE NEGATIVE Urine Ketones TRACE H NEGATIVE Urine Nitrite NEGATIVE NEGATIVE Urine Bilirubin NEGATIVE NEGATIVE Urine Urobilinogen 0.2 < = 1.0 MG/DL Urine Leukocyte Esterase NEGATIVE NEGATIVE Urine RBC (Auto) TRACE-I H NEGATIVE Urine RBC 0-2 /HPF Urine WBC 0-2 /HPF Urine Squamous Epithelial Cells 2-5 /HPF Urine Crystals PRESENT H /LPF Urine Calcium Oxalate Crystals LARGE H /LPF Urine Bacteria MODERATE H /HPF Urine Casts NONE /LPF Urine Mucus NEGATIVE /LPF Urine Culture Indicated YES White Blood Count 11.6 H 4.3-11.0 10^3/uL Red Blood Count 4.16 3.80-5.11 10^6/uL Hemoglobin 12.2 11.5-16.0 g/dL Hematocrit 37 35-52 % Mean Corpuscular Volume 88 80-99 fL Mean Corpuscular Hemoglobin 29 25-34 pg Mean Corpuscular Hemoglobin Concent 33 32-36 g/dL Red Cell Distribution Width 13.5 10.0-14.5 % Platelet Count 276 130-400 10^3/uL Mean Platelet Volume 10.8 9.0-12.2 fL Immature Granulocyte % (Auto) 0 % Neutrophils (%) (Auto) 69 42-75 % Lymphocytes (%) (Auto) 23 12-44 % Monocytes (%) (Auto) 6 0-12 % Eosinophils (%) (Auto) 1 0-10 % Basophils (%) (Auto) 0 0-10 % Neutrophils # (Auto) 8.0 H 1.8-7.8 10^3/uL Lymphocytes # (Auto) 2.7 1.0-4.0 10^3/uL Monocytes # (Auto) 0.6 0.0-1.0 10^3/uL Eosinophils # (Auto) 0.2 0.0-0.3 10^3/uL Basophils # (Auto) 0.0 0.0-0.1 10^3/uL Immature Granulocyte # (Auto) 0.1 0.0-0.1 10^3/uL OB - Assessment/Plan/Diagnosis Assessment Assessment: active labor, rupture of membranes Admission Dx # 39 WEEKS # LABOR...AROM CLEAR AT 0805...NOW 6 CM DILATION...ANTICIPATE # GBS NEG # DECLINES EPIDURAL...WANTS IV PAIN MEDS # HX X 2, LEOPOLDS 8 LBS, ADEQUATE PELVIS. Admission Status: Inpatient Order (span 2 midnights) Reason for Inpatient Admission: LABOR Plan Plan: Other (AROM AND PITOCIN AUGMENTATION) Other Plan ABOVE NEFTALI VEGA DO Dec 08, 2022 09:56
[2022-12-08] MEDS ORDERED: LIDOCAINE 1% INJ 10 ML VIAL ONE (10:55)
[2022-12-08] MEDS: OXYTOCIN PRE-MIX DRIP 500 ML IV SCH ×2 (12:15→22:26)
[2022-12-08] MEDS ORDERED: WITCH HAZEL(TUCKS) 40 EA JAR TOP PRN (12:30)
[2022-12-08] MEDS ORDERED: ACETAMINOPHEN 500 MG TAB (TYLENOL) PO PRN (12:30)
[2022-12-08] MEDS ORDERED: BENZOCAINE/MENTHOL (DERMOPLAST) 56 ML CAN TP PRN (12:30)
[2022-12-08] MEDS: IBUPROFEN 600 MG (MOTRIN) TAB PO SCH ×2 (12:52→18:59)
--- NOTE | 2022-12-08 12:55 | OB Labor & Delivery Record ---
Vag Delivery Note Vag Delivery Note Date of Delivery: 12/08/22 Preoperative Diagnosis: Daniela Pryor is a (27 /Para 4 / 2,Gestational Age (wks)39 4/7 with labor Postoperative Diagnosis: labor Surgeon: NEFTALI VEGA Bottle Label Inspector: None Anesthesia: Epidural, Local Delivery Type: Findings: [] Viable male , apgars 8/9, weight 9 lbs. 9 onz. Lacerations: left periurethral laceration (not bleeding and not repaired), 1" distal vaginal floor laceration near introitus repaired with running 3-0 rapide. Intact placenta with 3 vessel cord. No nuchal cord, body cord or shoulder dystocia Estimated Blood Loss: 300 ml Complications: None Condition: Stable Description of Procedure: Complete: 1135 Baby: 1144 Placenta: 1148 EBL 300 ML Complications: None Comments. After delivery of baby, placed on maternal abdomen and delayed cord clamp x2 done and cord cut after 1 minute. IV Pitocin rapid infusion started after cord clamped. Placenta delivered spontaneously and intact. Uterus massaged and firm. Vaginal floor laceration repaired as described above. Counts correct. Mother and baby doing well. Vitals - Labs Vital Signs - I&O Vital Signs Date Time Temp Pulse Resp B/P (MAP) Pulse Ox O2 Delivery O2 Flow Rate FiO2 12/08/22 10:24 90 18 122/60 (80) Room Air 12/08/22 09:54 100 18 133/84 (100) Room Air 12/08/22 09:39 106 18 129/83 (98) Room Air 12/08/22 09:24 99 18 117/70 (86) Room Air 12/08/22 09:08 111 18 130/62 (84) Room Air 12/08/22 08:53 112 18 132/74 (93) Room Air 12/08/22 08:40 102 18 135/79 (97) Room Air 12/08/22 08:05 37.0 12/08/22 07:47 36.4 103 18 96 Room Air 12/08/22 07:03 36.4 103 18 132/76 (94) 96 Room Air Labs Laboratory Tests 12/08/22 06:05: Urine Color DARK YELLOW, Urine Clarity SL CLOUDY, Urine pH 6.0, Urine Specific [place] >=1.030, Urine Protein TRACEH, Urine Glucose (UA) NEGATIVE, Urine Ketones TRACEH, Urine Nitrite NEGATIVE, Urine Bilirubin NEGATIVE, Urine Urobilinogen 0.2, Urine Leukocyte Esterase NEGATIVE, Urine RBC (Auto) TRACE-IH, Urine RBC 0-2, Urine WBC 0-2, Urine Squamous Epithelial Cells 2-5, Urine Crystals PRESENTH, Urine Calcium Oxalate Crystals LARGEH, Urine Bacteria MODERATEH, Urine Casts NONE, Urine Mucus NEGATIVE, Urine Culture Indicated YES 12/08/22 06:20: White Blood Count 11.6H, Red Blood Count 4.16, Hemoglobin 12.2, Hematocrit 37, Mean Corpuscular Volume 88, Mean Corpuscular Hemoglobin 29, Mean Corpuscular Hemoglobin Concent 33, Red Cell Distribution Width 13.5, Platelet Count 276, Mean Platelet Volume 10.8, Immature Granulocyte % (Auto) 0, Neutrophils (%) (Auto) 69, Lymphocytes (%) (Auto) 23, Monocytes (%) (Auto) 6, Eosinophils (%) (Auto) 1, Basophils (%) (Auto) 0, Neutrophils # (Auto) 8.0H, Lymphocytes # (Auto) 2.7, Monocytes # (Auto) 0.6, Eosinophils # (Auto) 0.2, Basophils # (Auto) 0.0, Immature Granulocyte # (Auto) 0.1 Shoulder Dystocia Note Shoulder Dystocia Start Time of Delivery of HEAD: 11:44 NEFTALI VEGA DO Dec 08, 2022 12:55
[2022-12-08] MEDS ORDERED: CATHETER FLUSH 10 ML SYR IV SCH (14:00)
[2022-12-08] MEDS: CATHETER FLUSH 10 ML SYR IV SCH (14:00)
[2022-12-08] MEDS ORDERED: DOCUSATE SODIUM 100 MG (COLACE) CAP PO SCH (21:00)
[2022-12-09 00:29] VITALS: BP 125/69
[2022-12-09] MEDS: CATHETER FLUSH 10 ML SYR IV SCH ×2 (00:32→06:41)
[2022-12-09] MEDS: IBUPROFEN 600 MG (MOTRIN) TAB PO SCH ×3 (00:32→13:04)
[2022-12-09 04:03] VITALS: BP 134/80
[2022-12-09 06:56] LABS: BASOPHILS % (AUTO) 0 % (0-10); EOSINOPHILS # (AUTO) 0.2 10^3/uL (0.0-0.3); EOSINOPHILS % (AUTO) 2 % (0-10); HEMATOCRIT 33 % (35-52); HEMOGLOBIN 11.3 g/dL (11.5-16.0); LYMPHOCYTES # (AUTO) 2.6 10^3/uL (1.0-4.0); LYMPHOCYTES % (AUTO) 26 % (12-44); MEAN CORPUSCULAR HEMOGLOBIN 30 pg (25-34); MEAN CORPUSCULAR HGB CONC 34 g/dL (32-36); MEAN CORPUSCULAR VOLUME 88 fL (80-99); MEAN PLATELET VOLUME 10.3 fL (9.0-12.2); MONOCYTES # (AUTO) 0.6 10^3/uL (0.0-1.0); MONOCYTES % (AUTO) 5 % (0-12); NEUTROPHILS # (AUTO) 6.8 10^3/uL (1.8-7.8); NEUTROPHILS % (AUTO) 67 % (42-75); PLATELET COUNT 235 10^3/uL (130-400); WHITE BLOOD COUNT 10.2 10^3/uL (4.3-11.0)
[2022-12-09] MEDS ORDERED: PRENATAL VITAMIN 1 EA TAB PO SCH (07:00)
--- NOTE | 2022-12-09 09:25 | Short Stay Summary ---
Discharge Summary Hospital Course Was the Problem List Reviewed?: Yes Final Diagnosis: Labor Hospital Course Date of Admission: Dec 08, 2022 at 05:51 Admission Diagnosis : Family Physician/Provider: Gilson Beal DO Date of Discharge: 12/09/22 Discharge Diagnosis: [ ] Hospital Course: [ ] Labs and Pending Lab Test: Laboratory Tests 12/09/22 06:40: White Blood Count 10.2, Red Blood Count 3.75L, Hemoglobin 11.3L, Hematocrit 33L, Mean Corpuscular Volume 88, Mean Corpuscular Hemoglobin 30, Mean Corpuscular Hemoglobin Concent 34, Red Cell Distribution Width 13.2, Platelet Count 235, Mean Platelet Volume 10.3, Immature Granulocyte % (Auto) 1, Neutrophils (%) (Auto) 67, Lymphocytes (%) (Auto) 26, Monocytes (%) (Auto) 5, Eosinophils (%) (Auto) 2, Basophils (%) (Auto) 0, Neutrophils # (Auto) 6.8, Lymphocytes # (Auto) 2.6, Monocytes # (Auto) 0.6, Eosinophils # (Auto) 0.2, Basophils # (Auto) 0.0, Immature Granulocyte # (Auto) 0.1 Home Meds Active Ondansetron Odt (Ondansetron) 4 Mg Tab.rapdis 4 Mg PO Q6H PRN Reported Tablet ( Vit/Iron Fumarate/FA) 27 Mg Iron-800 Mcg Tablet 1 Each PO DAILY Assessment/Pt Instructions Follow up [address] Beal Discharge Instructions Discharge Diet: No Restrictions Activity as Tolerated: Yes Discharge Physical Examination General Appearance: Oriented X3 HEENT: EOMI Cardiovascular: Regular Rate Abdominal: Soft Extremities: No Tenderness/Swelling Skin: No Rashes Neuro: Normal Gait Allergies: Coded Allergies: latex (Verified Allergy, Unknown, 02/26/19) nystatin (Verified Allergy, Unknown, 02/26/19) Uncoded Allergies: MUSCLE RELAXANTS (Allergy, Unknown, 02/26/19) PAIN MEDICATION (Allergy, Unknown, 02/26/19) Discharge Summary Date of Admission Dec 08, 2022 at 05:51 Date of Discharge GARYNEFTALI HAMM Dec 09, 2022 09:25
[2022-12-09 09:29] VITALS: BP 112/80
== END 2022-12-09 14:00 | disposition home or self-care (01) | DRG 807 ==
LOC: LDRP 05:51
PROVIDERS: ADMIT Obstetrics & Gynecology; ATTEND Obstetrics & Gynecology
PROC: 10E0XZZ Delivery of Products of Conception, External Approach (ICD-10-PCS; principal; 2022-12-08)
PROC: 10907ZC Drainage of Amniotic Fluid, Therapeutic from Products of Conception, Via Natural or Artificial Opening (ICD-10-PCS; 2022-12-08)
DX: O71.82 Other specified trauma to perineum and vulva (principal); Z37.0 Single live birth; Z3A.39 39 weeks gestation of pregnancy
CPT/HCPCS: 36415; 81000; 83033; 85025; 86780; 86850; 86900; 86901; 87088; 87591

== ENCOUNTER 2023-05-23 11:47 | Emergency (ER) | payer MEDICAID ==
[~2023-05-23] VITALS: Ht 162.6 cm; Wt 104.5 kg
--- NOTE | 2023-05-23 11:53 | ED Lower Extremity ---
General Stated Complaint: DEREK LWR EXTREMITY PAIN History of Present Illness Date Seen by Provider: May 23, 2023 Time Seen by Provider: 11:52 Initial Comments 28-year-old female is here with complaints of low back pain which is radiating down her left leg. 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 Denies bladder or bowel dysfunction, ambulation issues, fever and chills, falls or trauma. Allergies and Home Medications Allergies Coded Allergies: latex (Verified Allergy, Unknown, 02/26/19) nystatin (Verified Allergy, Unknown, 02/26/19) Uncoded Allergies: MUSCLE RELAXANTS (Allergy, Unknown, 02/26/19) PAIN MEDICATION (Allergy, Unknown, 02/26/19) Patient Home Medication List Home Medication List Reviewed: Yes Vit/Iron Fumarate/FA ( Tablet) 27 Mg Iron-800 Mcg Tablet, 1 EACH PO DAILY, (Reported) Entered as Reported by: GAYLA OTTO on 11/27/22 0854 Review of Systems Constitutional: no symptoms reported EENTM: no symptoms reported Respiratory: no symptoms reported Cardiovascular: no symptoms reported Gastrointestinal: no symptoms reported Genitourinary: no symptoms reported Musculoskeletal: back pain Skin: no symptoms reported Psychiatric/Neurological: No Symptoms Reported Past [id number]-Jngzsa-Qpewzi Hx Seasonal Allergies Seasonal Allergies: Yes Past Medical History Surgery/Hospitalization HX: GALLBLADDER SX Surgeries: Yes Gallbladder Respiratory: No Cardiac: No Neurological: No Genitourinary: No Gastrointestinal: Yes (Hyperemesis gravidarum) Musculoskeletal: No Endocrine: No HEENT: No Cancer: No Psychosocial: No Integumentary: No Blood Disorders: No Physical Exam Vital Signs Vital Signs - First Documented 05/23/23 12:00 Temp 37.1 Pulse 85 Resp 16 B/P (MAP) 153/85 (107) Pulse Ox 98 O2 Delivery Room Air Capillary Refill : Height, Weight, BMI Height: 5'4.00" Weight: 270lbs. oz. [id number]; 42.66 BMI Method:Stated General Appearance: WD/WN, no apparent distress HEENT: PERRL/EOMI Neck: non-tender, full range of motion Cardiovascular: regular rate, rhythm Respiratory: lungs clear, normal breath sounds Gastrointestinal: soft, no organomegaly Back: normal inspection, no CVA tenderness, no vertebral tenderness, muscle spasm (Left leg: Straight leg test positive, no saddle anesthesia. Patient able to ambulate without any difficulty) Neurologic/Psychiatric: no motor/sensory deficits, alert, oriented x 3 Skin: normal color Progress/Results/Core Measures Results/Orders Lab Results Laboratory Tests Test 05/23/23 12:07 Range/Units My Orders Orders - DONNA PAULSON MD Hcg,Qualitative Urine (05/23/23 12:18) Ua Culture If Indicated (05/23/23 12:18) Lumbar Spine 2 Or 3 View (05/23/23 12:18) Ketorolac Injection (Ketorolac Injection (05/23/23 12:30) Dexamethasone Injection (Dexamethasone (05/23/23 12:30) Medications Given in ED Current Medications Medications Dose Ordered Sig/Angel Luis Route Start Time Stop Time Status Last Admin Dose Admin Dexamethasone Sodium Phosphate 10 mg ONCE ONCE IM 05/23/23 12:30 05/23/23 12:31 DC 05/23/23 12:41 10 MG Ketorolac Tromethamine 30 mg ONCE ONCE IM 05/23/23 12:30 05/23/23 12:31 DC 05/23/23 12:41 30 MG Vital Signs/I&O 05/23/23 12:00 Temp 37.1 Pulse 85 Resp 16 B/P (MAP) 153/85 (107) Pulse Ox 98 O2 Delivery Room Air Progress Progress Note : Progress Note 1. LUMBAR BACK PAIN WITH LEFT SIDED SCIATICA: -X-ray lumbar spine: No acute findings - Back pain likely due to career of heavy lifting and also always carrying her children. -Toradol IM and dexamethasone IM once stat in the ER. Pain improved with medications -Advised [id number] Lidoderm patches and ibuprofen or Tylenol as needed for pain. -Advised gentle stretching. -Follow-up with PCP within the next 7 days. -The patient was seen in the ED, and treated appropriately to presentation at a specific point in time. Patient is informed that there is a possibility that disease and illness can evolve and change in acuity rapidly or slowly after patient is discharged from the ER. Precautionary advice given to the patient for immediate return to ER if symptoms worsen or do not resolve, and to seek emergency care sooner rather than later. Pt also advised on the importance of PCP follow up and compliance with management and follow up plan with PCP and/or specialist, as this is part of the management plan. Pt verbally expressed understanding. Diagnostic Imaging Diagonstic Imaging: Xray Plain Films/CT/US/NM/MRI: other Comments [facility]. [place], [place] NAME: ADAL PABLO [facility] REC#: [id number] PT STATUS: REG ER : 1995 PHYSICIAN: DONNA PAULSON MD ADMIT DATE: 05/23/23/ER FS Draft Date of Exam:05/23/23 LUMBAR SPINE 2 OR 3 VIEW INDICATION: Low back pain with sciatica. FINDINGS: Frontal and lateral lumbar spine films showed normal vertebral statures aligned anatomically. The disc space is preserved. The facet relationships are unremarkable. No acute abnormality. IMPRESSION: Unremarkable radiographic appearance of the anatomically aligned lumbar spine. Dictated on workstation # [id number] Dict: 05/23/23 1237 Trans: 05/23/23 1241 [id number] Interpreted by: DION JIANG Electronically signed by: Departure Impression Primary Impression: Back pain of lumbar region with sciatica Disposition: HOME, SELF-CARE Condition: Improved Departure-Patient Inst. Referrals: KYLAH WILLS MD (PCP) Primary Care Physician Patient Instructions: Back Exercises, Low Back Pain ED, Sciatica ED Add. Discharge Instructions: -Advised [id number] Lidoderm patches and ibuprofen or Tylenol as needed for pain. -Advised gentle stretching. -Follow-up with PCP within the next 7 days. DONNA PAULOSN MD May 23, 2023 11:53
[2023-05-23 12:00] VITALS: BP 153/85
[2023-05-23 12:24] LABS: BILIRUBIN,URINE NEGATIVE (NEGATIVE); COLOR,URINE YELLOW; GLUCOSE, URINE (UA) NEGATIVE (NEGATIVE); KETONES,URINE NEGATIVE (NEGATIVE); LEUKOCYTE ESTERASE ,URINE TRACE (NEGATIVE); NITRITE,URINE NEGATIVE (NEGATIVE); PROTEIN,URINE NEGATIVE (NEGATIVE)
[2023-05-23] MEDS ORDERED: dexAMETHasone INJ 10 MG/ML 1 ML VIAL IM ONE (12:30)
[2023-05-23] MEDS ORDERED: KETOROLAC INJ 30 MG/ML VIAL IM ONE (12:30)
--- NOTE | 2023-05-23 12:41 | Diagnostic Imaging Report ---
INDICATION: Low back pain with sciatica. FINDINGS: Frontal and lateral lumbar spine films showed normal vertebral statures aligned anatomically. The disc space is preserved. The facet relationships are unremarkable. No acute abnormality. IMPRESSION: Unremarkable radiographic appearance of the anatomically aligned lumbar spine. Dictated by: Dictated on workstation # [id number]
[2023-05-23 12:49] LABS: BACTERIA,URINE FEW /HPF; CLARITY,URINE SL CLOUDY
== END 2023-05-23 12:59 | disposition home or self-care (01) ==
LOC: EDUNIT# 11:47 → ER FS 11:49
DX: M54.42 Lumbago with sciatica, left side (principal); Z91.040 Latex allergy status
CPT/HCPCS: 72100; 81000; 84703; 87088; 96372